=== PATIENT | female | born 1945 | race Caucasian/White ===

== ENCOUNTER 2017-01-22 09:10 | Emergency (ER) | payer MEDICARE ==
[2017-01-22] MEDS ORDERED: TETANUS/DIPHTHERIA/PERTUSSIS 0.5 ML SYRINGE IM ONE ×2 (10:23→10:39)
[2017-01-22] MEDS ORDERED: CEPHALEXIN 250 MG CAPSULE PO STA (10:23)
[2017-01-22] MEDS ORDERED: CEPHALEXIN 250 MG CAPSULE PO ONE (10:39)
--- NOTE | 2017-01-22 10:54 | ED Physician Documentation ---
History of Present Illness - Stated complaint Stated Complaint: R WRIST INJURY - Chief complaint Chief Complaint: Wound - Additonal information Additional information: hx from pt attacked by rooster last night wound to R FA immunosupressed 2/2 methotrexate Review of Systems Constitutional: denies: Fever Skin: reports: Other (wound / bite R FA) PD PAST MEDICAL HISTORY - Past Medical History Past Medical History: Yes Cardiovascular: None Respiratory: None Endocrine/Autoimmune: None GI: GERD : None Psych: None Derm: None Other Past Medical History: sjoegrens ds - Past Surgical History Past Surgical History: Yes 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 HEENT: Tonsil/Adenoidectomy - Present Medications Home Medications: Ambulatory Orders Medication Instructions Recorded Confirmed Albuterol [Ventolin Hfa] 2 puffs INH Q4H PRN 04/08/13 04/08/13 Areds 2 04/08/13 04/08/13 Ascorbic Acid [Vitamin C] 1,000 mg PO 04/08/13 04/08/13 Calcium Carb/Vitamin D3/Vit K1 1 each PO 04/08/13 04/08/13 [Calcium + Vit D & K Chew Tab] Carboxymethylcellulose Sodium 15 ml OP 04/08/13 04/08/13 [Refresh Liquigel] Cholecalciferol (Vitamin D3) 2,000 unit PO 04/08/13 04/08/13 [Vitamin D-3] Estrogens, Conjugated [Premarin] 0.625 mg PO 04/08/13 04/08/13 Fexofenadine HCl [Anni] 30 mg PO 04/08/13 04/08/13 Ginkgo Biloba 120 mg PO 04/08/13 04/08/13 Gluc HCl/Csa/Collagen/Hyalur A 1 each PO 04/08/13 04/08/13 [Glucosamine Chondroitin Cap] Ipriflavone Complex 04/08/13 04/08/13 Melatonin/Pyridoxine [Melatonin 3 1 each PO 04/08/13 04/08/13 mg Tablet] Multivit-Min/FA/Lycopene/Lut 1 each PO 04/08/13 04/08/13 [Centrum Silver Tablet] Naproxen Sodium [Aleve] 220 mg PO 04/08/13 04/08/13 Nasalcrom 5.2 BID 04/08/13 04/08/13 Nortriptyline [Pamelor] 25 mg PO HS 04/08/13 04/08/13 Potassium Gluconate [Potassium] 99 mg PO 04/08/13 04/08/13 Ranitidine HCl [Zantac] 150 mg PO BID 04/08/13 04/08/13 Selenium 200 mcg PO 04/08/13 04/08/13 Spironolact/Hydrochlorothiazid 0.5 each PO 04/08/13 04/08/13 [Aldactazide 25-25 Tablet] Ubidecarenone/Vitamin E Mixed 1 each PO 04/08/13 04/08/13 [Coq10 Sg 100 Softgel] Vit B Comp/C/FA/Iron/Vit E 1 each PO 04/08/13 04/08/13 [Vitamin B Complex Tablet] Hydrocodone/Acetaminophen 1 - 2 each PO Q6H PRN #14 tablet 03/05/16 [Hydrocodon-Acetaminophen 5-325] Cephalexin [Keflex] 500 mg PO Q6H #28 capsule 01/22/17 Methotrexate Sodium/Pf 25 mg IJ 01/22/17 [Methotrexate 25 mg/ml Vial] - Allergies Allergies/Adverse Reactions: Allergies Allergy/AdvReac Type Severity Reaction Status Date / Time No Known Drug Allergies Allergy Verified 04/08/13 07:36 - Social History Does the pt smoke?: No Smoking Status: Never smoker Does the pt drink ETOH?: No Does the pt have substance abuse?: No - Immunizations Immunizations are current?: No Immunizations: TDAP >10years/unknown PD ED PE NORMAL - Vitals Vital signs reviewed: Yes - Cardiac Cardiac: RRR (distant) - Respiratory Respiratory: No respiratory distress, Clear bilaterally - Extremities Extremities: Other (missing/avulsed tissue defect and several smaller puncture wounds to dorsal R FA, MSV intact, surrounding bruising and a bit of erythema) Results - Vitals Vitals: Vital Signs - 24 hr 01/22/17 09:16 Temperature 36.0 C L Heart Rate 65 Respiratory 16 Rate Blood Pressure 157/79 H O2 Saturation 100 Oxygen O2 Source Room air PD MEDICAL DECISION MAKING - ED course ED course: Open wound from chicken bite, on methotrexate, only small erythema but fear developing infection do not think pasteurella is a concern with poultry will rx keflex no need for rabies prophylaxis for non mammal bite pt to return to see me for wound check 48 hr Departure - Departure Disposition: 01 Home, Self Care Clinical Impression: Animal bite Condition: Good Instructions: ED Bite Animal General Prescriptions: Cephalexin [Keflex] 500 mg PO Q6H #28 capsule Comments: Every days gently wash the wounds and then apply antibiotic ointment and a clean bandage every day Since your PMD is off , return to see me for a wound check Your will need to follow up with your PMD to recheck your blood pressure - it was high today
[2017-01-22 11:11] VITALS: BP 130/65
== END 2017-01-22 11:12 | disposition home or self-care (01) ==
LOC: ED 09:10
DX: S51.851A Open bite of right forearm, initial encounter (principal); W64.XXXA Exposure to other animate mechanical forces, initial encounter; K21.9 Gastro-esophageal reflux disease without esophagitis; M35.00 Sjogren syndrome, unspecified
CPT/HCPCS: 90471; 90715; 99283; A9270

== ENCOUNTER 2018-06-27 12:11 | Outpatient (CLI) | payer MEDICARE ==
--- NOTE | 2018-06-27 15:49 | XRAY Report ---
Reason: HIP PAIN, RIGHT Procedure Date: 06/27/2018 Accession Number: [id number] / [id number] Procedure: XR - Hip w/Pelvis 2-3V RT CPT Code: FULL RESULT: EXAM: RIGHT HIP AND PELVIS RADIOGRAPHY EXAM DATE: 06/27/2018 01:03 PM. HISTORY: Hip pain, right. COMPARISONS: XR PELVIS 1 OR 2 VIEWS 01/19/2008 1:23 PM. TECHNIQUE: 1 view of the pelvis and 1 view of the hip. FINDINGS: Bones: Normal. No fracture or bone lesion. Joints: The bilateral hip joints are narrowed, progressed compared to 2007 and moderate to severe. The pubis symphysis, and sacroiliac joints are preserved. Soft Tissues: Normal. No soft tissue swelling. 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 RADIA
== END 2018-06-27 12:12 | disposition home or self-care (01) ==
LOC: DI 12:11
PROVIDERS: ATTEND Internal Medicine Rheumatology
DX: M16.0 Bilateral primary osteoarthritis of hip (principal)

== ENCOUNTER 2019-02-27 12:50 | Outpatient (CLI) | payer MEDICARE ==
[2019-02-27 13:15] LABS: BASOPHILS # (AUTO) 0.1 10^3/uL (0.0-0.1); BASOPHILS % (AUTO) 0.6 %; EOSINOPHILS # (AUTO) 0.1 10^3/uL (0.0-0.7); HGB - HEMOGLOBIN 13.5 g/dL (12.0-16.0); LYMPHOCYTES # (AUTO) 1.7 10^3/uL (1.5-3.5); LYMPHOCYTES % (AUTO) 14.7 %; MEAN CORPUSCULAR HEMOGLOBIN 32.5 pg (27.0-31.0); MEAN CORPUSCULAR HGB CONC 32.5 g/dL (32.0-36.0); MEAN CORPUSCULAR VOLUME 100.2 fL (81.0-99.0); MEAN PLATELET VOLUME 8.7 fL (7.9-10.8); MONOCYTES # (AUTO) 0.4 10^3/uL (0.0-1.0); MONOCYTES % (AUTO) 3.7 %; NEUTROPHILS # (AUTO) 9.1 10^3/uL (1.5-6.6); NEUTROPHILS % (AUTO) 79.3 %; PLT - PLATELET COUNT 402 10^3/uL (130-450); RED BLOOD COUNT 4.15 10^6/uL (4.20-5.40); RED CELL DISTRIBUTION WIDTH 16.1 % (12.0-15.0); WHITE BLOOD COUNT 11.5 x10^3/uL (4.8-10.8)
[2019-02-27 13:32] LABS: ALBUMIN 4.1 g/dL (3.2-5.5); ALBUMIN/GLOBULIN RATIO 1.3 (1.0-2.2); ALKALINE PHOSPHATASE 84 IU/L (42-121); ALT ALANINE AMINOTRANSFERASE 36 IU/L (10-60); AST ASPARTATE AMINOTRANSFERASE 39 IU/L (10-42); BILIRUBIN,TOTAL 0.5 mg/dL (0.2-1.0); BUN - BLOOD UREA NITROGEN 34 mg/dL (6-20); CALCIUM 11.8 mg/dL (8.5-10.3); CARBON DIOXIDE - CO2 27 mmol/L (21-32); CHLORIDE 102 mmol/L (101-111); CREATININE 1.5 mg/dL (0.4-1.0); GFR - MDRD 34 (>89); GLUCOSE 110 mg/dL (70-100); SODIUM 139 mmol/L (135-145); TOTAL PROTEIN 7.3 g/dL (6.7-8.2)
[2019-02-27 13:46] LABS: CRP - C-REACTIVE PROTEIN < 1.0 mg/dL (0-1.0)
== END 2019-02-27 12:51 | disposition home or self-care (01) ==
LOC: LAB 12:50
PROVIDERS: ATTEND Internal Medicine Rheumatology
DX: M35.01 Sjogren syndrome with keratoconjunctivitis (principal); N18.3 Chronic kidney disease, stage 3 (moderate)
CPT/HCPCS: 36415; 80053; 85025; 86140

== ENCOUNTER 2019-03-09 15:14 | Outpatient (CLI) | payer MEDICARE ==
[2019-03-09 16:26] LABS: ALBUMIN 3.9 g/dL (3.2-5.5); ALBUMIN/GLOBULIN RATIO 1.2 (1.0-2.2); BILIRUBIN,TOTAL 0.8 mg/dL (0.2-1.0); CALCIUM 10.2 mg/dL (8.5-10.3); TOTAL PROTEIN 7.1 g/dL (6.7-8.2)
[2019-03-11 23:37] LABS: ALBUMIN 3.9 g/dL (3.8-4.8); ALPHA 1 GLOBULIN 0.4 g/dL (0.2-0.3); BETA 1 GLOBULIN 0.4 g/dL (0.4-0.6); BETA 2 GLOBULIN 0.3 g/dL (0.2-0.5); GAMMA GLOBULIN 0.5 g/dL (0.8-1.7)
== END 2019-03-09 15:15 | disposition home or self-care (01) ==
LOC: LAB 15:14
PROVIDERS: ATTEND Internal Medicine
DX: E83.52 Hypercalcemia (principal)
CPT/HCPCS: 36415; 80053; 81599; 82306; 82570; 83519; 84155; 84156; 84165; 84166

== ENCOUNTER 2020-03-17 07:37 | Outpatient (CLI) | payer MEDICARE ==
--- NOTE | 2020-03-17 09:58 | Ultrasound Report ---
PROCEDURE: Retroperitoneal INDICATIONS: ABNORMAL MRI TECHNIQUE: Real-time scanning was performed of the retroperitoneal organs, with image documentation. COMPARISON: None available. FINDINGS: Kidneys: Right kidney measures 9.2 cm long; left kidney measures 9.3 cm long. Right renal cortical thickness is 0.9 cm; left renal cortical thickness is 1 cm. Kidneys appear somewhat atrophic with inc reased echogenicity. No solid masses, hydronephrosis, or nephrolithiasis. Bilateral renal cysts. Larg est on the right measures 0.8 x 0.8 x 0.8 cm and appears simple. Largest cyst on the left measures 3. 4 x 3.3 x 3.1 cm and is simple. Small calcification in the inferior pole the left kidney with shadowi ng measuring 1.3 x 1.2 x 0.7 cm. Renal vascular calcification seen. Bladder: Prevoid volume of 219 cc. Post void residual of 0 cc. Bilateral ureteral jets are seen. IMPRESSION: 1. Large simple cyst in the left kidney measuring 3.4 cm. Additional small renal cysts bilaterally. T he cyst appears simple on ultrasound but if MRI imaging is concerning recommend further evaluation [facility] renal protocol CT or MRI. -Outside MRI is not available for comparison at this time. Recommend comparison to prior imaging. 2. Nonobstructing calculus in the inferior pole the left kidney measuring 1.3 cm. No hydronephrosis. 3. Echogenic kidneys suggesting medical renal disease. 4. No post void residual. Reviewed by: Jonathan Hutchison MD on 03/17/2020 9:56 AM PDT Approved by: Jonathan Hutchison MD on 03/17/2020 9:56 AM PDT Station ID: [id number]
--- NOTE | 2020-03-17 12:45 | Ultrasound Report ---
PROCEDURE: Ext Limited Non Vascular INDICATIONS: RT LOWER MASS INNER LEG TECHNIQUE: Real-time scanning was performed of the , with image documentation. COMPARISON: None. FINDINGS: There is a small hypoechoic structure within the subcutaneous fat measuring only 2 x 4 x 5 mm. No internal blood flow, no evidence of hyperemia along the margins of this structure. IMPRESSION: Single identified ovoid hypoechoic 2 x 4 x 5 mm structure within the subcutaneous fat co rresponding to the area of current clinical concern. As discussed there is no internal blood flow wit hin this structure or increased blood flow along its periphery. Continued clinical follow-up is recom mended and if clinical concerns persist or increase surgical consultation for excisional biopsy could be considered. Reviewed by: Musa Lanza MD on 03/17/2020 12:44 PM PDT Approved by: Musa Lanza MD on 03/17/2020 12:44 PM PDT Station ID: [id number]
== END 2020-03-17 07:38 | disposition home or self-care (01) ==
LOC: DI 07:37
PROVIDERS: ATTEND Student in an Organized Health Care Education/Training Program
DX: R22.41 Localized swelling, mass and lump, right lower limb (principal); N20.0 Calculus of kidney; N28.1 Cyst of kidney, acquired
CPT/HCPCS: 76770; 76882

== ENCOUNTER 2021-02-07 13:30 | Outpatient (CLI) | payer MEDICARE | END 2021-02-07 13:31 | disposition home or self-care (01) | LOC: DI 13:30 → RT 13:31 | PROVIDERS: ATTEND Physician Assistant | DX: Z01.810 Encounter for preprocedural cardiovascular examination (principal) | CPT/HCPCS: 93005 ==

== ENCOUNTER 2021-07-07 15:17 | Outpatient (CLI) | payer MEDICARE ==
--- NOTE | 2021-07-07 16:53 | XRAY Report ---
PROCEDURE: Wrist 3 View LT INDICATIONS: LEFT WRIST PAIN TECHNIQUE: 4 views of the wrist were acquired. COMPARISON: None FINDINGS: Bones: Moderate to severe osteoarthritic changes are noted at the scaphotrapezial joint and first CM C joint. No acute fracture or dislocation. Moderate to severe osteoarthritic changes also noted invol ving second through fourth MCP joints. No fractures or dislocations. No suspicious bony lesions. Li near lucencies are noted throughout second through fifth metacarpal heads and at first and second CMC joints concerning for erosion secondary to inflammatory arthropathy. Scaphoid view: Scaphoid is grossly intact. Soft tissues: No suspicious soft tissue calcifications. IMPRESSION: Moderate to severe osteoarthritic changes in first CMC joint and scaphotrapezial joint. Moderate to s evere osteoarthritic changes also noted at second through fourth MCP joints. No fracture or dislocati on. Possible erosive changes involving the metacarpal heads and first and second CMC joints as above. Finding may represent changes related to inflammatory arthropathy. Reviewed by: Edi Viera MD on 07/07/2021 4:52 PM PST Approved by: Edi Viera MD on 07/07/2021 4:52 PM PST Station ID: [id number]
== END 2021-07-07 15:18 | disposition home or self-care (01) ==
LOC: DI.S 15:17
PROVIDERS: ATTEND Physician Assistant
DX: M19.032 Primary osteoarthritis, left wrist (principal)

== ENCOUNTER 2023-04-19 10:29 | Outpatient (CLI) | payer MEDICARE ==
--- NOTE | 2023-04-19 11:59 | XRAY Report ---
PROCEDURE: Cervical Spine 2 View INDICATIONS: NECK PAIN TECHNIQUE: 4 view(s) of the cervical spine were acquired. COMPARISON: None. FINDINGS: Bones: No fractures or dislocations to the C7 level. Reversal of the normal cervical lordosis. Grade 1 anterolisthesis of C5 on C6. Severe disc height loss at all levels. Osseous fusion at C5-6. Diffus e facet arthrosis. Soft tissues: No prevertebral soft tissue swelling. IMPRESSION: Severe, multilevel degenerative disease and facet arthrosis. No definite acute fracture, but extensiv e degenerative changes may obscure an occult finding. Given history, consider CT. Reviewed by: Alejandro Agrawal on 04/19/2023 11:58 AM PDT Approved by: Alejandro Agrawal on 04/19/2023 11:58 AM PDT Station ID: [id number]
[2023-04-19 14:50] LABS: CALCIUM 9.9 mg/dL (8.5-10.3); POTASSIUM 4.4 mmol/L (3.5-4.5)
== END 2023-04-19 10:30 | disposition home or self-care (01) ==
LOC: DI.S 10:29
PROVIDERS: ATTEND Student in an Organized Health Care Education/Training Program
DX: N18.31 Chronic kidney disease, stage 3a (principal); M47.812 Spondylosis without myelopathy or radiculopathy, cervical region; M50.322 Other cervical disc degeneration at C5-C6 level
CPT/HCPCS: 36415; 80048

== ENCOUNTER 2023-11-08 09:45 | Outpatient (CLI) | payer MEDICARE ==
[2023-11-08 15:32] LABS: BILIRUBIN,URINE SMALL (NEGATIVE); GLUCOSE, URINE (UA) NEGATIVE (NEGATIVE); KETONES,URINE (UA) TRACE mg/dL (NEGATIVE); LEUKOCYTE ESTERASE, URINE SMALL (NEGATIVE); NITRITE,URINE NEGATIVE (NEGATIVE); OCCULT BLOOD,URINE NEGATIVE (NEGATIVE); PH,URINE 5.5 PH (5.0-7.5); PROTEIN,URINE TRACE mg/dL (NEGATIVE); UROBILINOGEN,URINE 0.2 (NORMAL) E.U./dL (NORMAL)
[2023-11-08 15:55] LABS: BACTERIA,URINE Many /HPF (None Seen); CLARITY,URINE HAZY (CLEAR); RBC,URINE 0-5 /HPF (0-5); SQUAMOUS EPITHELIAL CELL,UR MANY Squamous (<= Few); WBC,URINE >25 /HPF (0-5)
[2023-11-08 15:56] LABS: CASTS, URINE 11-25 Hyaline Casts /LPF; MUCUS,URINE Few Strands
== END 2023-11-08 23:59 | disposition home or self-care (01) ==
LOC: LAB.S 09:45
PROVIDERS: ATTEND Emergency Medicine
DX: R30.0 Dysuria (principal)
CPT/HCPCS: 81001; 87086

== ENCOUNTER 2023-11-19 09:09 | Emergency (ER) | payer MEDICARE ==
--- NOTE | 2023-11-19 09:30 | ED Physician Documentation ---
PD HPI CHEST PAIN - Stated complaint Stated Complaint: CP - Chief complaint Chief Complaint: Cardiac - History obtained from History obtained from: Patient, EMS - History of Present Illness Timing - onset: Today Timing - onset during: Light activity Timing - duration: Hours (1) Timing - details: Abrupt onset, Now resolved Quality: Pressure, Tightness (feeling of pressure in chest and tightness, extending to face and neck.) Location: Substernal Radiation: Jaw, Neck, Other (face) Improved by: Other (improved enroute when EMS gave Diltiazem and HR slowed and converted to NSR.) Associated symptoms: Feeling faint / dizzy, General Weakness. No: Nausea Similar symptoms before: Has not had sx before Review of Systems Constitutional: denies: Fever, Chills Nose: denies: Rhinorrhea / runny nose, Congestion Throat: denies: Sore throat Cardiac: denies: Pedal edema, Calf pain Respiratory: denies: Cough GI: reports: Nausea. 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 HEENT: Tonsil/Adenoidectomy - Present Medications Home Medications: Ambulatory Orders Medication Instructions Recorded Confirmed Albuterol [Ventolin Hfa] 2 puffs INH Q4H PRN 04/08/13 11/19/23 Areds 2 04/08/13 04/08/13 Carboxymethylcellulose Sodium 15 ml OP DAILY 04/08/13 11/19/23 [Refresh Liquigel] Cholecalciferol (Vitamin D3) 2,000 unit PO DAILY 04/08/13 11/19/23 [Vitamin D-3] Fexofenadine HCl [Anni] 30 mg PO BIDWM 04/08/13 11/19/23 Ginkgo Biloba 120 mg PO DAILY 04/08/13 11/19/23 Ipriflavone Complex 04/08/13 04/08/13 Multivit-Min/FA/Lycopene/Lut 1 each PO DAILY 04/08/13 11/19/23 [Centrum Silver Tablet] Naproxen Sodium [Aleve] 220 mg PO DAILY 04/08/13 11/19/23 Nasalcrom 5.2 mg PO BID 04/08/13 11/19/23 Potassium Gluconate [Potassium] 99 mg PO DAILY 04/08/13 11/19/23 Spironolact/Hydrochlorothiazid 0.5 each PO DAILY 04/08/13 11/19/23 [Aldactazide 25-25 Tablet] Ubidecarenone/Vitamin E Mixed 1 each PO DAILY 04/08/13 11/19/23 [Coq10 Sg 100 Softgel] Vit B Comp/C/Folic/Iron/Vit E 1 each PO DAILY 04/08/13 11/19/23 [Vitamin B Complex Tablet] Methotrexate Sodium/Pf 25 mg IJ ONCE 01/22/17 11/19/23 [Methotrexate 25 mg/ml Vial] Magnesium Oxide [Mag Ox] 400 mg PO DAILY #30 tablet 11/19/23 - Allergies Allergies/Adverse Reactions: Allergies Allergy/AdvReac Type Severity Reaction Status Date / Time No Known Drug Allergies Allergy Verified 11/19/23 10:59 - Social History Does the pt smoke?: No Smoking Status: Never smoker Does the pt drink ETOH?: No Does the pt have substance abuse?: No - Immunizations Immunizations are current?: No Immunizations: TDAP >10years/unknown - POLST Patient has POLST: No Results - Vitals Vitals: Vital Signs - 24 hr 11/19/23 11/19/23 11/19/23 09:17 10:24 11:14 Temperature 36.2 C L Heart Rate 61 49 L Respiratory 22 16 Rate Blood Pressure 153/83 H 156/67 H Blood Pressure 146/81 H [Right] O2 Saturation 100 99 11/19/23 11/19/23 12:26 12:48 Temperature Heart Rate 55 L Respiratory 16 15 Rate Blood Pressure 135/75 H Blood Pressure [Right] O2 Saturation 99 Oxygen O2 Source Room air - EKG (time done) 09:44 EKG releavant findings:: EKG personally interpreted by author of this note. Relevant findings are: Rate: Rate (enter#) (51) Rhythm: Sinus bradycardia [place]: Normal Intervals: Normal VT QRS: Normal Ischemia: Normal ST segments. No: ST elevation c/w ischemia, ST depression - Labs Labs: Laboratory Tests 11/19/23 11/19/23 11/19/23 09:40 09:40 09:40 WBC 8.7 RBC 4.15 L Hgb 13.6 Hct 41.9 MCV 101.0 H MCH 32.8 H MCHC 32.5 RDW 14.6 Plt Count 297 MPV 8.7 Neut # (Auto) 5.2 Lymph # (Auto) 2.3 Piatt # (Auto) 0.7 Eos # (Auto) 0.4 Baso # (Auto) 0.1 Absolute Nucleated RBC 0.00 Nucleated RBC % 0.0 Sodium 141 Potassium 3.3 L Chloride 102 Carbon Dioxide 29 Anion Gap 10.0 BUN 31 H Creatinine 1.0 Estimated GFR (MDRD) 54 L Glucose 102 Calcium 10.3 Phosphorus 2.5 Magnesium 1.6 L Total Bilirubin 0.6 AST 28 ALT 32 Alkaline Phosphatase 74 B-Natriuretic Peptide 203 H Total Protein 6.6 Albumin 4.1 Globulin 2.5 Albumin/Globulin Ratio 1.6 Lipase 71 TSH 2.86 - Rads (name of study) chest xray Relevant Findings:: Prelim report reviewed, EMP independent interpretation of test (no acute process) PD Medical Decision Making - ED course Complexity details: reviewed results (CBC is okay. CHemistry showing K 3-2 and Mg 1.7, else normal. ), re-evaluated patient (Still feeeling okay here. Given extra Mag and Potassium for mildly low levels of each. Her heart rate is currently 40s-55. She states HR is typically upper 50s-low 60s. Could likely be slower than suual due to the Diltiazem. I defer starting on Ca/Beta blockers for now due to this. ), considered differential (Her symptoms tiffany to correspond to onset of rapid atrial fib and improved when HR slowed and converted back. ), d/w patient Departure - Departure Disposition: 01 Home, Self Care Clinical Impression: Paroxysmal atrial fibrillation, Low magnesium level, Low serum potassium Condition: Stable Record reviewed to determine appropriate education?: Yes Instructions: ED Afib Follow-Up: DIANNA ROSALES I [Primary Care Provider] - Prescriptions: Magnesium Oxide [Mag Ox] 400 mg PO DAILY #30 tablet Comments: You had an episode of atrial fibrillation which was going fast and seem to cause your symptoms. It was slow down with medication by the medics and is back to a normal rhythm. Your heart rate right now is a little bit slow and the new state that your heart rate tends to be slightly slow. So at this point I would prefer not to prescribe any medication for your heart rate or rhythm. I do not want your heart rate to go too slow when you are rested. I would contact your primary care and see if they can set you up with a heart monitor that you wear for period of a week or so and see if you are having this occur at other times. If so that may clarify the need for other medication. Otherwise if it was a single episode then no added medicine may be needed. Your potassium and magnesium were both a bit low and can contribute to the ease of which your heart has irregular rhythms. Continue with your potassium supplement and increase it to daily. Add a magnesium supplement. Stay well-hydrated otherwise. Return to the ER if you have similar episodes or other episodes that are lasting more than 15 or 20 minutes or associated with symptoms such as chest pain or lightheadedness or fainting. Forms: PCP List Discharge Date/Time: 11/19/23 12:48
[2023-11-19 09:45] LABS: BASOPHILS # (AUTO) 0.1 10^3/uL (0.0-0.1); BASOPHILS % (AUTO) 0.8 %; EOSINOPHILS # (AUTO) 0.4 10^3/uL (0.0-0.7); EOSINOPHILS % (AUTO) 4.3 %; HCT - HEMATOCRIT 41.9 % (37.0-47.0); HGB - HEMOGLOBIN 13.6 g/dL (12.0-16.0); LYMPHOCYTES # (AUTO) 2.3 10^3/uL (1.5-3.5); LYMPHOCYTES % (AUTO) 27.1 %; MEAN CORPUSCULAR HEMOGLOBIN 32.8 pg (27.0-31.0); MEAN CORPUSCULAR HGB CONC 32.5 g/dL (32.0-36.0); MEAN PLATELET VOLUME 8.7 fL (7.9-10.8); MONOCYTES # (AUTO) 0.7 10^3/uL (0.0-1.0); MONOCYTES % (AUTO) 7.7 %; NEUTROPHILS # (AUTO) 5.2 10^3/uL (1.5-6.6); NEUTROPHILS % (AUTO) 59.8 %; PLT - PLATELET COUNT 297 10^3/uL (130-450); RED BLOOD COUNT 4.15 10^6/uL (4.20-5.40); RED CELL DISTRIBUTION WIDTH 14.6 % (12.0-15.0); WHITE BLOOD COUNT 8.7 x10^3/uL (4.8-10.8)
--- NOTE | 2023-11-19 09:47 | XRAY Report ---
PROCEDURE: Chest 1V INDICATIONS: Chest Pain TECHNIQUE: One view of the chest was acquired. COMPARISON: None. FINDINGS: Surgical changes and devices: None. Lungs and pleura: No pleural effusions or pneumothorax. Lungs are clear. Mediastinum: Mediastinal contours appear normal. Heart size is normal. Bones and chest wall: No suspicious bony lesions. Overlying soft tissues appear unremarkable. IMPRESSION: No acute cardiopulmonary process. Reviewed by: Alejandro Agrawal MD on 11/19/2023 9:45 AM PDT Approved by: Alejandro Agrawal MD on 11/19/2023 9:45 AM PDT Station ID: [id number]
[2023-11-19 09:57] LABS: MAGNESIUM 1.6 mg/dL (1.7-2.3)
[2023-11-19 10:03] LABS: ALBUMIN 4.1 g/dL (3.2-5.5); ALBUMIN/GLOBULIN RATIO 1.6 (1.0-2.2); BILIRUBIN,TOTAL 0.6 mg/dL (0.2-1.0); CALCIUM 10.3 mg/dL (8.5-10.3); PHOSPHORUS 2.5 mg/dL (2.5-5.0); POTASSIUM 3.3 mmol/L (3.5-4.5); TOTAL PROTEIN 6.6 g/dL (6.4-8.9)
[2023-11-19 10:13] LABS: THYROID STIMULATING HORMONE 2.86 uIU/mL (0.34-5.60)
[2023-11-19] MEDS: POTASSIUM BICARB 25 MEQ TABLET PO STA (10:19)
[2023-11-19] MEDS: MAGNESIUM SULFATE 2 GRAM 2 GM/50 ML BAG IV ONE (10:19)
[2023-11-19 11:24] VITALS: O2SAT 99
[2023-11-19 12:57] VITALS: BP 135/75
== END 2023-11-19 12:48 | disposition home or self-care (01) ==
LOC: EDUNIT# → ED 09:09
DX: I48.0 Paroxysmal atrial fibrillation (principal); E83.42 Hypomagnesemia; E87.6 Hypokalemia; Z79.899 Other long term (current) drug therapy
CPT/HCPCS: 36415; 71045; 80053; 83690; 83735; 83880; 84100; 84443; 85025; 93005; 96365; 99284; A9270

== ENCOUNTER 2024-06-13 01:37 | Inpatient (IN) ==
--- NOTE | 2024-06-13 01:37 | ED Physician Documentation ---
History of Present Illness Stated complaint Stated Complaint: AFIB RVR Chief complaint Chief Complaint: Cardiac Additonal information Additional information: 79-year-old female with history of atrial fibrillation, Watchman procedure, hysterectomy, GERD presents with tachycardia. The patient states she was feeling well until a few hours ago, when she developed palpitations again, similar to a few days ago. She denies any other symptoms. No fevers, chills, nausea or vomiting, shortness of breath, lightheadedness or syncope, chest or back or abdominal or flank pain, trauma, or other new concerns. No urinary symptoms. EMS noted afib with RVR and gave 43mg IV diltiazem total, decreasing HR from 180s to 150s. She tolerated this well. She was BP 130s/80s. She denies history of bleeding, stating she had Watchmann procedure because she is on NSAIDs for her rheumatoid arthritis, for which she also takes methotrexate. Per chart review, she was seen June 11, 2 days ago, with report of extensive prior testing, no anticoagulation however clopidogrel. She has received IV diltiazem in the past. In the ER, she had low normal blood pressure readings, accordingly was cardioverted with propofol for sedation. She required 2 electrocardioversions. Review of Systems ROS Constitutional: no fever, no chills Eyes: no visual disturbance, no discharge Ears, Nose, Mouth, Throat: no rhinorrhea, no sore throat Cardiovascular: no chest pain, +palpitations Respiratory: no cough, no shortness of breath Gastrointestinal: no abdominal pain, no vomiting, no diarrhea Genitourinary: no dysuria, no hematuria Musculoskeletal: no back pain, no neck stiffness Skin: no rash, no wound Neurological: no focal weakness, no focal numbness Meds/Allgy Home Medications Ambulatory Orders Medication Instructions Recorded Confirmed albuterol sulfate 90 mcg/actuation 2 puff inhalation Q4H PRN Wheezing 04/08/13 06/13/24 aerosol inhaler (Ventolin HFA) carboxymethylcellulose sodium 1 % 15 ml ophthalmic (eye) DAILY 04/08/13 06/13/24 eye liquid gel drops (Refresh Liquigel) cholecalciferol (vitamin D3) 50 2,000 unit PO DAILY 04/08/13 06/13/24 mcg (2,000 unit) capsule (Vitamin D3) coenzyme J68-juaulig E 100 mg-100 1 ea PO DAILY 04/08/13 06/13/24 unit capsule (CoQ10 SG) ginkgo biloba 120 mg tablet 120 mg PO DAILY 04/08/13 06/13/24 potassium gluconate 595 mg (99 mg) 1,190 mg PO BID 04/08/13 06/13/24 tablet spironolactone 25 0.5 tab PO DAILY 04/08/13 06/13/24 mg-hydrochlorothiazide 25 mg tablet (Aldactazide) vit B pxkiohq-C-IG-iron fum-vit E 1 ea PO DAILY 04/08/13 06/13/24 500 mg-400 mcg-18 mg iron tablet (Vitamins B Complex) methotrexate sodium (PF) 25 mg/mL 25 mg IM OAW 01/22/17 06/13/24 injection solution magnesium oxide 400 mg (241.3 mg 400 mg PO DAILY #30 tabs 11/19/23 06/13/24 magnesium) tablet clopidogrel 75 mg tablet 75 mg PO DAILY 06/11/24 06/13/24 fexofenadine 180 mg tablet 180 mg PO Q24H 06/11/24 06/13/24 (Anni Allergy) methylprednisolone 4 mg tablet 4 mg PO DAILY 06/11/24 06/13/24 omeprazole 20 mg capsule,delayed 20 mg PO DAILY 06/11/24 06/13/24 release vit C 250 mg-vit E 200 unit-zinc 4 cap PO DAILY 06/11/24 06/13/24 ox 12.5 sz-ovdeyh-aesvcx-zeax capsule Allergies Allergies Allergy/AdvReac Type Severity Reaction Status Date / Time cyclobenzaprine Allergy Unknown Unknown Verified 06/13/24 01:47 [facility] Social History Social History Smoking Status: Never smoker Do you dip or chew tobacco?: No Relationship: Do you feel safe in your home environment?: Yes Suffered physical, verbal, emotional, or financial abuse?: No History of Abuse: No POLST Patient has POLST: No Exam Exam Const: no acute distress, non toxic appearing; calm, conversant, pleasant Eyes: PERRLA, EOMI ENT: mucous membranes moist Neck: supple, non-tender Resp: no respiratory distress, clear to auscultation bilaterally Card: Irregularly irregular tachycardia to 140s currently, no murmurs Abd: non tender diffusely, no rigidity or rebound or guarding Back: no T or L spine tenderness, no CVA tenderness bilaterally Extrem: no deformities, no swelling bilateral lower extremities, less than 2- second capillary refill distally, 2+ distal pulses all extremities Neuro: ANOx4, sampler tester grossly intact, grossly intact sensation and strength all extremities Skin: no rash, warm and dry Results Vitals Vitals: Vital Signs - 24 hr 06/13/24 01:40 06/13/24 02:13 06/13/24 02:15 Temperature 36.6 C Temperature Source Temporal Artery Scan Pulse Rate 142 H 112 H 134 H Respiratory Rate 12 13 12 Blood Pressure 125/83 111/91 H 112/90 O2 Saturation 97 97 97 O2 Source Room air Room air Room air Pain Intensity 0 0 0 06/13/24 02:20 06/13/24 02:25 06/13/24 02:40 Temperature Temperature Source Pulse Rate 136 H 122 H 131 H Respiratory Rate 12 11 L 10 L Blood Pressure 123/96 H 129/65 123/92 H O2 Saturation 98 97 97 O2 Source Room air Room air Room air Pain Intensity 0 0 0 06/13/24 02:55 Temperature Temperature Source Pulse Rate 119 H Respiratory Rate 12 Blood Pressure 129/80 O2 Saturation 97 O2 Source Room air Pain Intensity 0 Oxygen O2 Source Room air Labs Labs: Laboratory Tests 06/13/24 01:48 WBC 8.8 RBC 4.00 L Hgb 13.1 Hct 39.3 MCV 98.3 MCH 32.8 H MCHC 33.3 RDW 15.9 H Plt Count 361 MPV 8.7 Neut # (Auto) 5.8 Lymph # (Auto) 1.9 [place] # (Auto) 0.7 Eos # (Auto) 0.2 Baso # (Auto) 0.1 Absolute Nucleated RBC 0.00 Nucleated RBC % 0.0 Sodium 141 Potassium 3.8 Chloride 108 Carbon Dioxide 24 Anion Gap 9.0 BUN 35 H Creatinine 0.9 Estimated GFR (MDRD) 60 L Glucose 128 H Calcium 9.8 Magnesium 2.1 Total Bilirubin 0.5 AST 27 ALT 27 Alkaline Phosphatase 92 Total Protein 7.0 Albumin 4.1 Globulin 2.9 Albumin/Globulin Ratio 1.4 PD Medical Decision Making ED course ED course: This patients presentation is most suggestive of recurring idiopathic atrial fibrillation with rapid ventricular response, with patient denying taking any rate control at home. She appears well-perfused, stable, comfortable. Blood pressure today appears suitable for trial of further diltiazem, and given she has received over 40 mg IV already, I am initiating diltiazem drip, along with magnesium sulfate 2 g IV. I am obtain EKG, CBC, CMP, magnesium, chest x-ray, giving small fluid bolus and will closely reassess. Patient understands and agrees with plan. EKG atrial fibrillation with rapid ventricular response to 110 currently, though intermittently to 130s to 140s on my assessments. No acute ischemia or immediately concerning interval prolongation. No chest pain. Labs: CBC with no leukocytosis, anemia, thrombocytopenia. Magnesium within normal limits. CMP grossly reassuring. CXR: I agree with radiology reads of imaging on my independent review of imaging. Per read by Dr. Us at 2:17AM, no acute findings; noted are R basilar atelectasis, L atrial appendage device/Watchman device, atherosclerotic calcifications of aorta. Patient stable but HR in 130s; requesting hospitalist consult at [phone] for admit on dilt gtt. Hospitalist: I spoke with Dr. Quesada of hospitalist who kindly accepts for admission on review of case with me at [phone] on phone. Admitting in stable condition on diltiazem gtt. CRITICAL CARE TIME: outside of procedures, I spent 35 minutes assessing, reassessing, resuscitating this patient, speaking with family and consultants, and interpreting studies and documentation, in the setting of afib RVR requiring dilt gtt. Discharge Plan Discharge Patient Disposition: 66 [facility] DC/Xfer Condition: Stable Clinical Impression: Atrial fibrillation with rapid ventricular response
[2024-06-13 01:51] LABS: BASOPHILS # (AUTO) 0.1 10^3/uL (0.0-0.1); BASOPHILS % (AUTO) 0.7 %; EOSINOPHILS # (AUTO) 0.2 10^3/uL (0.0-0.7); EOSINOPHILS % (AUTO) 2.7 %; HCT - HEMATOCRIT 39.3 % (37.0-47.0); HGB - HEMOGLOBIN 13.1 g/dL (12.0-16.0); LYMPHOCYTES # (AUTO) 1.9 10^3/uL (1.5-3.5); MEAN CORPUSCULAR HEMOGLOBIN 32.8 pg (27.0-31.0); MEAN CORPUSCULAR HGB CONC 33.3 g/dL (32.0-36.0); MEAN CORPUSCULAR VOLUME 98.3 fL (81.0-99.0); MEAN PLATELET VOLUME 8.7 fL (7.9-10.8); MONOCYTES # (AUTO) 0.7 10^3/uL (0.0-1.0); MONOCYTES % (AUTO) 8.3 %; NEUTROPHILS # (AUTO) 5.8 10^3/uL (1.5-6.6); NEUTROPHILS % (AUTO) 66.1 %; PLT - PLATELET COUNT 361 10^3/uL (130-450); RED CELL DISTRIBUTION WIDTH 15.9 % (12.0-15.0); WHITE BLOOD COUNT 8.8 x10^3/uL (4.8-10.8)
[2024-06-13] MEDS ORDERED: diltiaZEM INJ 5 MG/ML VIAL ONE (01:57)
[2024-06-13 02:03] LABS: MAGNESIUM 2.1 mg/dL (1.7-2.3)
[2024-06-13 02:09] LABS: ALBUMIN 4.1 g/dL (3.2-5.5); ALBUMIN/GLOBULIN RATIO 1.4 (1.0-2.2); BILIRUBIN,TOTAL 0.5 mg/dL (0.2-1.0); CALCIUM 9.8 mg/dL (8.5-10.3); CREATININE 0.9 mg/dL (0.6-1.3); POTASSIUM 3.8 mmol/L (3.5-4.5)
[2024-06-13] MEDS: diltiaZEM INJ 125 MG in DEXTROSE 5% 100 ML IV STA (02:10)
[2024-06-13] MEDS: SODIUM CHLORIDE 0.9% 500 ML IV STA (02:15)
[2024-06-13] MEDS: MAGNESIUM SULFATE 2 GRAM 2 GM/50 ML BAG IV ONE (02:34)
[2024-06-13] MEDS ORDERED: ONDANSETRON 4 MG/2 ML VIAL IVP PRN (03:10)
--- NOTE | 2024-06-13 03:22 | HISTORY & PHYSICAL EXAMINATION ---
Chief Complaint Chief Complaint Chief Complaint: Palpitations History of Present Illness History of Present Illness HPI Comment/Other: 79 y old female with PMH A fib came to the ER due to palpiataions which started at 23:15. Pt also had some discomfort in the jaw but it went away. Denies chest pain, SOB, GUERRERO, fver, abdomiinal pain, nausea, vomiting, diarrhea, constipation EKG showed A fib with RVR Pt visited ER yesterday due to A fib with RVR and had cardioversion Pt had watchman procedure 2 week ago As per pt, she had episode of A fib with RVR in October as well In ER, pt was started on Diltiazem gtt Pt is admitted due to A fib with RVR Review of Systems Status of ROS: 10 or more systems reviewed and unremarkable except as noted in history and below PFSH Social History Social History Smoking Status: Never smoker Do you dip or chew tobacco?: No Relationship: Do you feel safe in your home environment?: Yes Suffered physical, verbal, emotional, or financial abuse?: No History of Abuse: No POLST Patient has POLST: No Meds/Allgy Home Medications Ambulatory Orders Medication Instructions Recorded Confirmed albuterol sulfate 90 mcg/actuation 2 puff inhalation Q4H PRN Wheezing 04/08/13 06/13/24 aerosol inhaler (Ventolin HFA) carboxymethylcellulose sodium 1 % 15 ml ophthalmic (eye) DAILY 04/08/13 06/13/24 eye liquid gel drops (Refresh Liquigel) cholecalciferol (vitamin D3) 50 2,000 unit PO DAILY 04/08/13 06/13/24 mcg (2,000 unit) capsule (Vitamin D3) coenzyme Q75-hsitzfo E 100 mg-100 1 ea PO DAILY 04/08/13 06/13/24 unit capsule (CoQ10 SG) ginkgo biloba 120 mg tablet 120 mg PO DAILY 04/08/13 06/13/24 potassium gluconate 595 mg (99 mg) 1,190 mg PO BID 04/08/13 06/13/24 tablet spironolactone 25 0.5 tab PO DAILY 04/08/13 06/13/24 mg-hydrochlorothiazide 25 mg tablet (Aldactazide) vit B lnsyhht-Q-MZ-iron fum-vit E 1 ea PO DAILY 04/08/13 06/13/24 500 mg-400 mcg-18 mg iron tablet (Vitamins B Complex) methotrexate sodium (PF) 25 mg/mL 25 mg IM OAW 01/22/17 06/13/24 injection solution magnesium oxide 400 mg (241.3 mg 400 mg PO DAILY #30 tabs 11/19/23 06/13/24 magnesium) tablet clopidogrel 75 mg tablet 75 mg PO DAILY 06/11/24 06/13/24 fexofenadine 180 mg tablet 180 mg PO Q24H 06/11/24 06/13/24 (Anni Allergy) methylprednisolone 4 mg tablet 4 mg PO DAILY 06/11/24 06/13/24 omeprazole 20 mg capsule,delayed 20 mg PO DAILY 06/11/24 06/13/24 release vit C 250 mg-vit E 200 unit-zinc 4 cap PO DAILY 06/11/24 06/13/24 ox 12.5 jy-jjueac-rttghj-zeax capsule Allergies Allergies Allergy/AdvReac Type Severity Reaction Status Date / Time cyclobenzaprine Allergy Unknown Unknown Verified 06/13/24 01:47 Exam Constitutional normal general appearance HENMT normocephalic Eyes PERRL Neck/C-Spine visual inspection normal Chest inspection of chest normal Respiratory breath sounds equal bilaterally Cardiovascular irregular Gastrointestinal abdomen normal to inspection Extremities normal to inspection Neurology no focal motor deficit noted Skin no rash Conclusion/Plan Problem List (1) Atrial fibrillation with rapid ventricular response: Plan: A: A fib with RVR HTN Plan: Admit in ICU Cont cardiac monitoring Seriel cardiac enzymes Echo Start cardizem gtt Consult cardiology in am DVT prophylaxic: SCD Full code Pt is admitted as inpatient as more than 2 midnight stay is expected Lab Results 06/13/24 01:48 06/13/24 01:48
[2024-06-13] MEDS: diltiaZEM INJ 125 MG in DEXTROSE 5% 100 ML IV SCH (05:19)
[2024-06-13 06:16] LABS: BASOPHILS # (AUTO) 0.1 10^3/uL (0.0-0.1); BASOPHILS % (AUTO) 0.8 %; EOSINOPHILS # (AUTO) 0.3 10^3/uL (0.0-0.7); EOSINOPHILS % (AUTO) 3.1 %; HCT - HEMATOCRIT 37.4 % (37.0-47.0); HGB - HEMOGLOBIN 12.6 g/dL (12.0-16.0); LYMPHOCYTES # (AUTO) 1.6 10^3/uL (1.5-3.5); LYMPHOCYTES % (AUTO) 19.2 %; MEAN CORPUSCULAR HEMOGLOBIN 32.9 pg (27.0-31.0); MEAN CORPUSCULAR HGB CONC 33.7 g/dL (32.0-36.0); MEAN CORPUSCULAR VOLUME 97.7 fL (81.0-99.0); MEAN PLATELET VOLUME 8.6 fL (7.9-10.8); MONOCYTES # (AUTO) 0.7 10^3/uL (0.0-1.0); MONOCYTES % (AUTO) 8.5 %; NEUTROPHILS # (AUTO) 5.8 10^3/uL (1.5-6.6); NEUTROPHILS % (AUTO) 67.9 %; PLT - PLATELET COUNT 335 10^3/uL (130-450); RED BLOOD COUNT 3.83 10^6/uL (4.20-5.40); RED CELL DISTRIBUTION WIDTH 15.9 % (12.0-15.0); WHITE BLOOD COUNT 8.5 x10^3/uL (4.8-10.8)
[2024-06-13 06:19] LABS: VBG PH 7.459 (7.31-7.41)
[2024-06-13 06:20] LABS: CALCIUM, IONIZED 1.12 mmol/L (1.15-1.33)
[2024-06-13 06:29] LABS: CALCIUM 8.9 mg/dL (8.5-10.3); CREATININE 0.8 mg/dL (0.6-1.3); POTASSIUM 3.7 mmol/L (3.5-4.5)
[2024-06-13 06:42] LABS: MAGNESIUM 2.6 mg/dL (1.7-2.3); PHOSPHORUS 2.8 mg/dL (2.5-5.0)
[2024-06-13] MEDS: POTASSIUM CHLORIDE 20 MEQ TABLET PO ONE (07:06)
[2024-06-13] MEDS: SODIUM CHLORIDE FLUSH 0.9% 10 ML SYRINGE IVP SCH (08:10)
--- NOTE | 2024-06-13 09:44 | XRAY Report ---
PROCEDURE: XR Chest 1V INDICATIONS: afib RVR TECHNIQUE: One view of the chest was acquired. COMPARISON: June 11, 2024. FINDINGS: Surgical changes and devices: Again seen is enlargement device. Lungs and pleura: No pleural effusions or pneumothorax. No consolidation. Mediastinum: Mediastinal contours appear normal. Heart size is normal. The esophagus is gas-fille d and appears dilated with a possible hiatal hernia. Bones and chest wall: No suspicious bony lesions. Overlying soft tissues appear unremarkable. IMPRESSION: No acute cardiopulmonary process. Dilated gas-filled esophagus with likely hiatal hernia. Reviewed by: Марина Lucas MD on 06/13/2024 8:43 AM [facility] Approved by: Марина Lucas MD on 06/13/2024 8:43 AM [facility] Station ID: [id number]
[2024-06-13] MEDS: diltiaZEM CD 180 MG CAPSULE PO SCH (10:02)
[2024-06-13] MEDS: METOPROLOL 5 MG/5 ML VIAL IVP PRN (13:00)
--- NOTE | 2024-06-13 13:01 | PHARMACY PROGRESS NOTE ---
Best Possible Medication History Admit Date and Time: 06/13/24 [id number] Home Medications Medication Instructions Recorded Confirmed Type albuterol sulfate 90 mcg/actuation 2 puff inhalation Q4H PRN Wheezing 04/08/13 06/13/24 History aerosol inhaler (Ventolin HFA) carboxymethylcellulose sodium 1 % 15 ml ophthalmic (eye) DAILY 04/08/13 06/13/24 History eye liquid gel drops (Refresh Liquigel) cholecalciferol (vitamin D3) 50 2,000 unit PO DAILY 04/08/13 06/13/24 History mcg (2,000 unit) capsule (Vitamin D3) coenzyme A10-mfhjuqn E 100 mg-100 1 ea PO DAILY 04/08/13 06/13/24 History unit capsule (CoQ10 SG) ginkgo biloba 120 mg tablet 120 mg PO DAILY 04/08/13 06/13/24 History potassium gluconate 595 mg (99 mg) 1,190 mg PO BID 04/08/13 06/13/24 History tablet spironolactone 25 0.5 tab PO DAILY 04/08/13 06/13/24 History mg-hydrochlorothiazide 25 mg tablet (Aldactazide) vit B xmpcnid-N-UV-iron fum-vit E 1 ea PO DAILY 04/08/13 06/13/24 History 500 mg-400 mcg-18 mg iron tablet (Vitamins B Complex) methotrexate sodium (PF) 25 mg/mL 25 mg IM OAW 01/22/17 06/13/24 History injection solution magnesium oxide 400 mg (241.3 mg 400 mg PO DAILY #30 tabs 11/19/23 06/13/24 Rx magnesium) tablet clopidogrel 75 mg tablet 75 mg PO DAILY 06/11/24 06/13/24 History fexofenadine 180 mg tablet 180 mg PO Q24H 06/11/24 06/13/24 History (Anni Allergy) methylprednisolone 4 mg tablet 4 mg PO DAILY 06/11/24 06/13/24 History omeprazole 20 mg capsule,delayed 20 mg PO DAILY 06/11/24 06/13/24 History release vit C 250 mg-vit E 200 unit-zinc 4 cap PO DAILY 06/11/24 06/13/24 History ox 12.5 gc-kiikqe-wpchvk-zeax capsule [facility] Statement: As the person ultimately responsible for medication therapy, providers are able to order a medication from an existing home medication list in [facility] via the "Reconcile Routine" prior to Confirmation of that medication by field support technician. Such practice is discouraged except when the physician, in their clinical judgment, deems that a medical need exists for a medication without regard to previous use.
--- NOTE | 2024-06-13 16:39 | PROVIDER PROGRESS NOTE ---
Progress Note Progress Note Progress Note: Subjective: 65 minutes was spent updating her H&P, speaking to the patient with exam, and then speaking to the Digital Account Coordinator international marketing specialist. This is a 79-year-old white female with a history of atrial fibrillation. She was brought in by ambulance in the supervisor underwriting clerks hours of today. She had gone to bed around 10 PM and had a recurrence of severe palpitations. Prior to this her history goes back to: June 11, 2024 abrupt onset of palpitations. Chest pain and tightness radiating to the jaw and neck. Blood pressure 97/78. Cardioverted twice in the ER. Sent home to follow-up with primary care provider, stone splitter but no rate lowering drugs. Approximately May 28, 2024 Watchman procedure for recurrent atrial fibrillation. To be on Plavix and aspirin for 45 days. Summer 2023 nuclear stress test and echocardiogram with [facility], cardiology in [place]. November 19, 2023 she presented with chest tightness extending to the face and neck associated with A-fib with RVR that was abrupt in onset. She was feeling faint, dizzy and generally weak. All of this improved en route to the hospital when EMS gave her diltiazem and heart rate slowed. She was able to convert to sinus rhythm. She was given magnesium and potassium for magnesium of 3.2 and a magnesium of 1.7. In the ER today she was started on diltiazem drip. And admitted to the ICU. This morning, approximately 7:30 AM, she is still in atrial fibrillation. Her heart rate is in the 80s and 90s. I am stopping her diltiazem drip and giving her Cardizem CD 180 mg daily. She is exhausted. She feels like she just ran a marathon and feels generalized weakness and fatigue. No chest pain. No shortness of breath. Every once while she still feels like her heart has a burst of tachycardia and then it slows down again within moments. Past medical history: 1. Sjogren's/stiff muscle syndrome since the age of 30. She is not on a monoclonal antibody; she is on methotrexate. 2. A-fib as above 3. with endometriosis and a hysterectomy at the age of 31 4. Stress fractures of feet near the time of her nursing home 5. Spine abnormalities. She fell and broke her neck when she was 15. She fell off a horse. It took 4 days for them to recognize that her spine was fractured. She has had lumbar disc surgery for sciatica. 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 6. Osteoarthritis with a right total hip replacement 7. Deafness 8. Visual migraines 9. History of cataracts removed with lens implantation 2012 Social history: She lives in [place]. Her support is from her friends and neighbors. She is trying to get one of her friends to be DURABLE POWER OF ACCOUNT SUPPORT ASSOCIATE. 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 She was . She retired from work because she was getting stress fractures in her feet. Hurt to stand. She was for many decades and never had children. She has been since 2018. At that time she was living on [address] on a farm. That was sold in 2021 and she now lives in town in [place]. She drinks 2-3 drinks a year. She never smoked. Family history: Mom at age 83 of probable esophageal cancer. She is not sure. Mom was an alcoholic and a smoker. Dad at age 81 of a brainstem hemorrhage. He abused alcohol and was a smoker. 1 brother lives in [place] but he still has a lot of childhood trauma that he is dealing with and does not speak to her. Her designated DPOA is Yesy Curran. She is in the midst of getting that paperwork done. Her primary care provider is Dr. Mcnamara at [facility], the [facility]. And her stone splitter is Dr. Ana Pizarro, also from the [facility]. Exam: Temperature is 36.5. Heart rate is 80. Respiration 15. 96% saturated on room air. Blood pressure 103/61. 5 foot 3 inch elderly female at 68 kg She does have facial asymmetry. She says that she is always had a face that was asymmetrical since . Left side face structure is subtly lower than the right. Definitely noticeable in the structure of her orbit and left eye lid lag. Neck is supple without bruits Irregular rate and rhythm without a murmur, no tachycardia. Abdomen is soft, nontender without masses She does not have any JVD or pedal edema. Skin exam is warm, pink, and no diaphoresis. No Raynaud's to the hands or feet Neurologically alert and oriented person, place, time and situation. Assessment/plan 1. Recurrent atrial fibrillation with RVR. This is also complicated by sinus bradycardia. When she was seen in October 2020 in the ER she became bradycardic with a single dose of diltiazem that was given to her. Her stone splitter have opted not to give her rate lowering drugs because of the bradycardia. I called the stone splitter on-call for Dr. Saucedo. That was Dr. Jonatan Farmer. I discussed the specifics of the case with him. 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 At this point, she has had 2 episodes of A-fib with severe tachycardia in 72 hours. This is after the Watchman procedure. He does recommend that I start her on Cardizem CD. Low-dose. And I am starting her on 180 mg. He will let her stone splitter know and will have the patient seen YOMAIRA. I expressed the thought that this patient may need a pacemaker. The patient is exhausted. She feels like she just ran a marathon. She is also fearful at times because she can feel her heart palpitating sporadically and then slow down again. I plan on keeping her overnight. She was admitted approximately 1:30 in the morning. She will stay 1 midnight and tomorrow morning I will reassess her for probable discharge. 2. Elevated troponin. Her troponin was 31 at 3:40 in the morning. At 6 in the morning it was 137. I think this is due to demand ischemia or just myocardial fiber stretch in a patient who is tachycardic for quite some time. Will recheck troponin this afternoon.
[2024-06-13] MEDS: CALCIUM CARBONATE CHEW 500 MG TABLET PO PRN (23:31)
[2024-06-13] MEDS: SODIUM CHLORIDE FLUSH 0.9% 10 ML SYRINGE IVP PRN (23:31)
[2024-06-14] MEDS: SODIUM CHLORIDE 0.9% 500 ML IV ONE (02:57)
[2024-06-14] MEDS: SODIUM CHLORIDE 0.9% 1,000 ML IV ONE (03:06)
[2024-06-14] MEDS: diltiaZEM INJ 125 MG in DEXTROSE 5% 100 ML IV SCH (04:34)
[2024-06-14 05:33] LABS: CALCIUM, IONIZED 1.12 mmol/L (1.15-1.33); VBG PH 7.432 (7.31-7.41)
[2024-06-14 05:43] LABS: PHOSPHORUS 2.8 mg/dL (2.5-5.0)
[2024-06-14] MEDS: methylPREDNISolone 4 MG TABLET PO SCH (08:47)
[2024-06-14] MEDS: CLOPIDOGREL 75 MG TABLET PO SCH (08:47)
[2024-06-14] MEDS: CHOLECALCIFEROL 25 MCG TABLET PO SCH (08:47)
[2024-06-14] MEDS: CARBOXYMETHYLCELLULOSE SODIUM EACHEAR SCH (09:02)
[2024-06-14] MEDS: [UNRECOGNIZED DRUG - OTHER] EACHEAR SCH (09:02)
--- NOTE | 2024-06-14 11:02 | PROVIDER PROGRESS NOTE ---
Subjective Prog Note Date Prog Note Date: 06/14/24 Prog Note Time: 10:58 Subjective Pt reports feeling: Improved Subjective: Does not have the shortness of breath chest tightness from yesterday. Every once while she feels the palpitations she is having. But she feels overall improved from yesterday to today. Unfortunately her A-fib rate became uncontrolled again in the underbaster hours. She was resumed on her diltiazem drip around 4:30 in the morning. She is in the 120s. Otherwise no new complaints. Sitting up in bed. Eating her breakfast. Current Medications Current Medications Current Medications: Current Medications Generic Name Dose Route Start Last Admin Trade Name Freq PRN Reason Stop Dose Admin Calcium Carbonate/Glycine 500 mg 06/13/24 22:22 06/13/24 23:31 Calcium Carbonate Chew 500 Mg Tablet PO 500 mg BID PRN Administration INDIGESTION Cholecalciferol 50 mcg 06/14/24 09:00 06/14/24 08:47 Cholecalciferol 25 Mcg Tablet PO 50 mcg DAILY MIRIAM Administration Clopidogrel Bisulfate 75 mg 06/14/24 09:00 06/14/24 08:47 Clopidogrel 75 Mg Tablet PO 75 mg DAILY MIRIAM Administration Diltiazem HCl 60 mg 06/14/24 10:57 Diltiazem 30 Mg Tablet PO 06/14/24 10:58 ONCE STA Diltiazem HCl 125 mg/ Dextrose 125 mls @ 5 mls/hr 06/14/24 04:00 06/14/24 05:52 IV 10 mg/hr .Q25H MIRIAM 10 mls/hr Titration Protocol 5 MG/HR Methylprednisolone 4 mg 06/14/24 09:00 06/14/24 08:47 Methylprednisolone 4 Mg Tablet PO 4 mg DAILY MIRIAM Administration Metoprolol Tartrate 5 mg 06/13/24 08:37 06/13/24 23:45 Metoprolol 5 Mg/5 Ml Vial IVP 5 mg Q6H PRN Administration tachycardia >110 Non-Formulary Medication 15 ml 06/14/24 09:00 06/14/24 09:02 Carboxymethylcellulose Sodium [Refresh Liquigel] EACHEAR Not Given DAILY MIRIAM Ondansetron HCl 4 mg 06/13/24 03:10 Ondansetron 4 Mg/2 Ml Vial IVP Q6HR PRN Nausea / Vomiting Sodium Chloride 10 ml 06/13/24 09:00 06/14/24 08:47 Sodium Chloride Flush 0.9% 10 Ml Syringe IVP 10 ml 0100,0900,1700 MIRIAM Administration Sodium Chloride 10 ml 06/13/24 03:10 06/13/24 23:46 Sodium Chloride Flush 0.9% 10 Ml Syringe IVP 10 ml PRN PRN Administration NEEDED PER PROVIDER ORDERS Objective Vital Signs/Intake & Output Reviewed Vital Signs: Yes Vital Signs: Vital Signs x48h Temp Pulse Pulse Resp BP BP Pulse Ox 06/14/24 10:00 123 H 23 99/67 96 06/14/24 09:00 120 H 16 98/66 95 06/14/24 08:00 36.6 C 136 H 21 99/67 98 06/14/24 07:00 114 H 13 103/53 L 100 06/14/24 06:00 122 H 17 95/62 99 06/14/24 05:52 122 H 12 90/53 L 99 06/14/24 05:32 134 H 11 L 95/64 96 06/14/24 05:18 144 H 16 99/74 95 06/14/24 05:00 136 H 11 L 91/73 96 06/14/24 04:52 136 H 12 110/54 L 98 06/14/24 04:47 138 H 11 L 101/68 97 06/14/24 04:41 136 H 97 H 96/68 11 L 06/14/24 04:35 148 H 15 122/84 99 06/14/24 04:34 133 H 17 101/77 99 06/14/24 04:34 145 H 101/77 06/14/24 04:00 140 H 15 140/78 H 98 06/14/24 03:42 36.5 C 126 H 10 L 113/88 97 06/14/24 03:33 144 H 12 130/90 98 06/14/24 03:00 139 H 16 111/81 97 Intake & Output: Intake & Output 06/11/24 06/12/24 06/13/24 06/14/24 23:59 23:59 23:59 23:59 Intake Total 2118 / 2118 1403 / 1403 Output Total 1700 / 1700 700 / 700 Balance 418 / 418 703 / 703 Weight (kg) 68 kg 69.5 kg Objective General Appearance: positive No acute distress, Alert and Other (5 feet 3 inches, 69.5 kg. Appears slightly older than stated age. Comfortable sitting up in chair) Eyes Bilateral: positive PERRL and EOMI ENT: positive No signs of dehydration Neck: positive Nml inspection and No JVD; negative Carotid bruit Respiratory: positive No respiratory distress and Breath sounds nml; negative Wheezes, Rales or Rhonchi Cardiovascular: positive Irregularly irregular and Tachycardia Abdomen: positive Non-tender, No organomegaly and Nml bowel sounds Skin: positive Warm and Dry Extremities: positive Non-tender, Full ROM and No pedal edema Neurologic/Psychiatric: positive Oriented x3, CN's nml (2-12), Motor nml, Sensation nml and Mood/affect nml Lab Results 06/13/24 06:04 06/14/24 05:18 Other Labs: Lab Results x24hrs 06/14/24 06/13/24 06/13/24 Range/Units 05:18 16:52 11:33 VBG pH 7.432 H (7.31-7.41) Ionized Calcium 1.12 L (1.15-1.33) mmol/L Potassium 4.0 4.0 (3.5-4.5) mmol/L Phosphorus 2.8 (2.5-5.0) mg/dL Magnesium 2.0 (1.7-2.3) mg/dL Troponin I High Sens 77.7 H* 157.6 H* (2.3-14.8) ng/L ABX Reporting Has patient been on IV antibiotics over the past 48 hours?: No Assessment/Plan Problem List (1) Atrial fibrillation with rapid ventricular response: Impression: Troponins are rising with this. Minimally so. I think this is more due to the continued tachycardia than true ischemic event. Unfortunately has tachycardia again. Have spoken to the mapping editor on-call again. He is hesitant to add amiodarone because if she gets bradycardic it will take too long to reverse that due to its half-life. He is advising that I increased her Cardizem CD from 180 mg to 240 mg. So I have added 60 mg p.o. short acting to today's 180 mg. Stay on the diltiazem drip. And increase to 240 mg p.o. tomorrow. I will continue my previous order of as needed Lopressor 5 mg IV push for heart rate greater than 110 for longer than 5 minutes. I will also give one dose of dig 0.25 IVP. I will reevaluate in a few hours. she is in OBV status. If she stays beyond this evening I will change to inpatient status.
[2024-06-14] MEDS: diltiaZEM 30 MG TABLET PO STA (11:06)
[2024-06-14] MEDS: DIGOXIN 500 MCG/2 ML AMP IVP STA (11:22)
[2024-06-14] MEDS ORDERED: CARBOXYMETHYLCELLULOSE OPHTH DROPS EACHEYE PRN (12:06)
[2024-06-14 19:24] VITALS: TEMP 98.2
[2024-06-15] MEDS: diltiaZEM CD 240 MG CAPSULE PO SCH (07:48)
--- NOTE | 2024-06-15 07:57 | Discharge Summary ---
Discharge Summary Admit Date: 06/13/24 Discharge Date: 06/15/24 Discharging Provider: Fabi Chacon MD Primary Care Provider: Argenis Mcnamara MD [facility] Code Status: Attempt Resuscitation DIAGNOSES Discharge Diagnoses with Status of Each Condition: 1. Recurrent atrial fibrillation with RVR 2. Sinus pause to 6.8 seconds secondary to medication 3. Elevated troponin HPI History of Present Illness: This is a 79-year-old white female with a history of atrial fibrillation. She was brought in by ambulance in the early head start director hours of today. She had gone to bed around 10 PM and had a recurrence of severe palpitations. Prior to this her history goes back to: June 11, 2024 abrupt onset of palpitations. Chest pain and tightness radiating to the jaw and neck. Blood pressure 97/78. Cardioverted twice in the ER. Sent home to follow-up with primary care provider, cane flume watcher but no rate lowering drugs. Approximately May 28, 2024 Watchman procedure for recurrent atrial fibrillation. To be on Plavix and aspirin for 45 days. Summer 2023 nuclear stress test and echocardiogram with [facility], cardiology in [place]. November 19, 2023 she presented with chest tightness extending to the face and neck associated with A-fib with RVR that was abrupt in onset. She was feeling faint, dizzy and generally weak. All of this improved en route to the hospital when EMS gave her diltiazem and heart rate slowed. She was able to convert to sinus rhythm. She was given magnesium and potassium for magnesium of 3.2 and a magnesium of 1.7. In the ER today she was started on diltiazem drip. And admitted to the ICU. I saw her on her morning of admission, approximately 7:30 AM, she is still in atrial fibrillation. Her heart rate is in the 80s and 90s. I am stopping her diltiazem drip and giving her Cardizem CD 180 mg daily. She is exhausted. She feels like she just ran a marathon and feels generalized weakness and fatigue. No chest pain. No shortness of breath. Every once while she still feels like her heart has a burst of tachycardia and then it slows down again within moments. Tells me that she has not been started on a rate lowering agent because she is bradycardic at times. Past medical history: 1. Sjogren's/stiff muscle syndrome since the age of 30. She is not on a monoclonal antibody; she is on methotrexate. 2. A-fib as above 3. with endometriosis and a hysterectomy at the age of 31 4. Stress fractures of feet near the time of her correction 5. Spine abnormalities. She fell and broke her neck when she was 15. She fell off a horse. It took 4 days for them to recognize that her spine was fractured. She has had lumbar disc surgery for sciatica. 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 6. Osteoarthritis with a right total hip replacement 7. Deafness 8. Visual migraines 9. History of cataracts removed with lens implantation 2012 HOSPITAL COURSE Hospital Course: Patient was placed in the ICU on a diltiazem drip. The next morning her rate dropped into the 80s but she was still in sinus rhythm. She was started on p.o. Cardizem and diltiazem drip stopped about an hour later. Over the course the day her heart rate gradually increased until the early head start director hours of June 14 she had to be put back on a Cardizem drip. On the morning of the she was on the Cardizem drip, received 240 mg of p.o. Cardizem CD, given 1 dose of Lopressor IV push, 1 dose of digoxin 0.25 IV push. Late in the afternoon of the , the patient had an abrupt 6.8-second sinus pause. This is attributed to the multiple medication she was receiving. When her heartbeat came back, she was in sinus rhythm. I was speaking to Dr.Mahesh Farmer on a daily basis. He is the cane flume watcher on-call for her cane flume watcher at [facility], Dr. Saucedo. Troponin was elevated. We have supersensitive troponin and her troponin levels were 31.3> 137.9> 156.7> 77.7. I attribute this to myocardial stretching and not ischemia. EKG had no ST-T wave changes with this. He did recommend continuing her on Cardizem CD. And she will be on Cardizem CD 180 mg p.o. daily. I am also recommending that she be considered for a pacemaker since she has baseline bradycardia that gets worse with any rate lowering agent. She is discharged in stable condition. Blood pressure 133/62. Pulse 56. Respirations 13. O2 sat 98%. She is 5 feet 3 inches tall, 68 kg. An alert elderly female who looks stated age. Oriented to person, place, and time situation. Neck is supple there is no JVD. The lungs are clear and she has not had any congestive heart failure. She has a regular rate and rhythm with soft systolic ejection murmur. The abdomen is soft, nontender. Extremities are without edema. She is able to get out of her bed, go from supine to sitting, sitting to standing without an assist. Able to ambulate without assist. Her friend is picking her up and from here she will go straight to her cardiology office appointment at the [facility] today. Greater than 30 minutes spent coordinating discharge ALLERGIES Allergies Allergy/AdvReac Type Severity Reaction Status Date / Time cyclobenzaprine Allergy Unknown Unknown Verified 06/13/24 01:47 MEDICATIONS Ambulatory Orders Medication Instructions Recorded Confirmed albuterol sulfate 90 mcg/actuation 2 puff inhalation Q4H PRN Wheezing 04/08/13 06/13/24 aerosol inhaler (Ventolin HFA) carboxymethylcellulose sodium 1 % 15 ml ophthalmic (eye) DAILY 04/08/13 06/13/24 eye liquid gel drops (Refresh Liquigel) cholecalciferol (vitamin D3) 50 2,000 unit PO DAILY 04/08/13 06/13/24 mcg (2,000 unit) capsule (Vitamin D3) coenzyme [id number] E 100 mg-100 1 ea PO DAILY 04/08/13 06/13/24 unit capsule (CoQ10 SG) ginkgo biloba 120 mg tablet 120 mg PO DAILY 04/08/13 06/13/24 potassium gluconate 595 mg (99 mg) 1,190 mg PO BID 04/08/13 06/13/24 tablet spironolactone 25 0.5 tab PO DAILY 04/08/13 06/13/24 mg-hydrochlorothiazide 25 mg tablet (Aldactazide) vit B ubzefmw-P-MR-iron fum-vit E 1 ea PO DAILY 04/08/13 06/13/24 500 mg-400 mcg-18 mg iron tablet (Vitamins B Complex) methotrexate sodium (PF) 25 mg/mL 25 mg IM OAW 01/22/17 06/13/24 injection solution magnesium oxide 400 mg (241.3 mg 400 mg PO DAILY #30 tabs 11/19/23 06/13/24 magnesium) tablet clopidogrel 75 mg tablet 75 mg PO DAILY 06/11/24 06/13/24 fexofenadine 180 mg tablet 180 mg PO Q24H 06/11/24 06/13/24 (Anni Allergy) methylprednisolone 4 mg tablet 4 mg PO DAILY 06/11/24 06/13/24 omeprazole 20 mg capsule,delayed 20 mg PO DAILY 06/11/24 06/13/24 release vit C 250 mg-vit E 200 unit-zinc 4 cap PO DAILY 06/11/24 06/13/24 ox 12.5 lf-uzkfiy-kbitke-zeax capsule diltiazem HCl 180 mg 240 mg (1.3333 x 180 mg) PO DAILY 06/15/24 capsule,extended release 24 hr #30 caps (Cartia XT) LABS 06/13/24 06:04 06/14/24 05:18 TIME SPENT Time Spent in Discharge (Minutes): 35 Discharge Plan Discharge Patient Disposition: 01 Home, Self Care Condition: Stable Medically Cleared Date:: 06/15/24 Prescriptions: New diltiazem HCl [Cartia XT] 180 mg capsule,extended release 24hr 240 mg PO DAILY Qty: 30 0RF Continued spironolacton-hydrochlorothiaz [Aldactazide] 1 EACH tablet 0.5 tab PO DAILY albuterol sulfate [Ventolin HFA] 60 PUFFS/8 GM HFA aerosol inhaler 2 puff inhalation Q4H PRN (Reason: Wheezing) carboxymethylcellulose sodium [Refresh Liquigel] 15 ML drops, liquid gel 15 ml ophthalmic (eye) DAILY ginkgo biloba 120 MG tablet 120 mg PO DAILY CoQ10 SG 100 1 EACH capsule 1 ea PO DAILY potassium gluconate 99 MG tablet 1,190 mg PO BID cholecalciferol (vitamin D3) [Vitamin D3] 2,000 UNIT capsule 2,000 unit PO DAILY Vitamins B Complex 1 EACH tablet 1 ea PO DAILY methotrexate sodium (PF) 25 MG/ML solution 25 mg IM OAW magnesium oxide 400 MG tablet 400 mg PO DAILY Qty: 30 0RF vit C-E-zinc hn-gned-iat-zeax 250 mg-200 unit -12.5 mg-1 mg capsule 4 cap PO DAILY fexofenadine [Anni Allergy] 180 mg tablet 180 mg PO Q24H omeprazole 20 mg capsule,delayed release(DR/EC) 20 mg PO DAILY methylprednisolone 4 mg tablet 4 mg PO DAILY clopidogrel 75 mg tablet 75 mg PO DAILY Activity Restrictions: Activity as Tolerated Diet: Regular Health Concerns: In October 2023 you presented to emergency room with chest tightness that radiated up into your neck and face and was found to have a new abnormal rhythm called atrial fibrillation. You felt weak and dizzy. And Cardizem worked to slow you down at the time and you went back to a normal rhythm. You were seen by cardiology in [place] that summer and you underwent a nuclear stress test and echocardiogram and that was normal. Then in May you underwent a Watchman procedure for recurrent atrial fibrillation. You are on Plavix for 45 days. You then presented to emergency room again with an abrupt onset of palpitations on June 11. Again chest tightness that radiated to your jaw and neck. You were electrically cardioverted twice and sent home when he went into sinus rhythm. On June 12, you had another abrupt onset of palpitations around 7:30 in the morning. In the emergency room you were started on intravenous diltiazem drip and that slowed you down enough that we thought we could stop it and we put you on oral Cardizem. You were still in atrial fibrillation. Over the next 2 days your atrial fibrillation would still become uncontrolled with heart rates into the 130s and 140s. I put you back on the Cardizem drip. I gave you intravenous Lopressor. I gave you 1 dose of digoxin. I was updating your cardiology office every day by speaking to Dr. Jonatan Farmer (educational advisor for Dr. Saucedo) on the phone. On June 14 you had an abrupt pause of 6.8 seconds. And when your heart rate came back it was in sinus rhythm in the 30s and 40s. Your heartbeat has remained in sinus rhythm. Your cane flume watcher had asked us to start you on Cardizem and you are taking that here. I am sending a prescription for Cardizem CD 180 mg to [facility] [place]. You are due to see your cane flume watcher today. Instructions for home: 1. Please make sure you see your primary care provider in the next 3 to 4 weeks for continuity of care 2. It is wonderful that you are going to be seeing your cane flume watcher today. Take these paperwork with you so he can see what happened.I can see where they hesitate to give you medicines to slow down your heart rate because you do get a very slow heart rate at times. I am suggesting that you may be a candidate for a pacemaker. Assessment: Patient is alert and oriented to person, place, time and situation. Lungs are clear. Heart rate has a regular rate and rhythm.. Plan of Treatment: . Print Language: Syriac Patient Instructions: Diltiazem extended-release capsules or tablets, Atrial Fibrillation
[2024-06-15 08:22] VITALS: BP 137/65; O2SAT 99
== END 2024-06-15 08:06 | disposition home or self-care (01) | DRG 310 ==
LOC: ED 01:37 → ICU 03:29
PROVIDERS: ADMIT Internal Medicine; ATTEND Internal Medicine

== ENCOUNTER 2024-06-20 02:13 | Inpatient (IN) ==
[2024-06-20 02:41] LABS: BASOPHILS # (AUTO) 0.1 10^3/uL (0.0-0.1); BASOPHILS % (AUTO) 0.6 %; EOSINOPHILS # (AUTO) 0.2 10^3/uL (0.0-0.7); EOSINOPHILS % (AUTO) 1.9 %; HCT - HEMATOCRIT 42.2 % (37.0-47.0); HGB - HEMOGLOBIN 13.9 g/dL (12.0-16.0); LYMPHOCYTES # (AUTO) 2.3 10^3/uL (1.5-3.5); LYMPHOCYTES % (AUTO) 22.8 %; MEAN CORPUSCULAR HEMOGLOBIN 32.5 pg (27.0-31.0); MEAN CORPUSCULAR HGB CONC 32.9 g/dL (32.0-36.0); MEAN CORPUSCULAR VOLUME 98.6 fL (81.0-99.0); MEAN PLATELET VOLUME 9.1 fL (7.9-10.8); MONOCYTES # (AUTO) 0.9 10^3/uL (0.0-1.0); NEUTROPHILS # (AUTO) 6.5 10^3/uL (1.5-6.6); NEUTROPHILS % (AUTO) 65.2 %; PLT - PLATELET COUNT 381 10^3/uL (130-450); RED BLOOD COUNT 4.28 10^6/uL (4.20-5.40); RED CELL DISTRIBUTION WIDTH 15.9 % (12.0-15.0); WHITE BLOOD COUNT 9.9 x10^3/uL (4.8-10.8)
[2024-06-20 02:54] LABS: MAGNESIUM 2.3 mg/dL (1.7-2.3)
--- NOTE | 2024-06-20 02:58 | ED Physician Documentation ---
History of Present Illness Stated complaint Stated Complaint: AFIB Chief complaint Chief Complaint: Cardiac History obtained from History obtained from: Patient and EMS Treatment prior to arrival Treatment prior to arrival: Patient 79-year-old female with past medical significant for paroxysmal atrial fibrillation presents with atrial fibrillation. Brought in via EMS. Woke from sleep at approximately 0100 hrs. in A-fib with a rapid ventricular response. Seen multiple times in the emergency department for similar presentation. Currently has Watchman device and is following with cardiology at [facility]. Reports has follow-up with electrocardio physiology in a few months as well as further cardiac testing. Denies chest pain but reports some mild shortness of breath. [place] Coma Scale Assess Eye opening: Spontaneous Verbal response: Oriented Motor response: Obeys Commands Total score: 15 Review of Systems Status of ROS: 10 or more systems reviewed and unremarkable except as noted in history and below Cardiovascular Reports: Irregular heart rate, palpitations and shortness of breath with exertion Respiratory Reports: Shortness of breath Meds/Allgy Home Medications Ambulatory Orders Medication Instructions Recorded Confirmed albuterol sulfate 90 mcg/actuation 2 puff inhalation Q4H PRN Wheezing 04/08/13 06/20/24 aerosol inhaler (Ventolin HFA) carboxymethylcellulose sodium 1 % 1 drp ophthalmic (eye) DAILY PRN 04/08/13 06/20/24 eye liquid gel drops (Refresh dry eye(s) Liquigel) cholecalciferol (vitamin D3) 50 2,000 unit PO DAILY 04/08/13 06/20/24 mcg (2,000 unit) capsule (Vitamin D3) coenzyme L36-urzpkvf E 100 mg-100 1 ea PO DAILY 04/08/13 06/20/24 unit capsule (CoQ10 SG) ginkgo biloba 120 mg tablet 120 mg PO DAILY 04/08/13 06/20/24 potassium gluconate 595 mg (99 mg) 1,190 mg PO BID 04/08/13 06/20/24 tablet spironolactone 25 0.5 tab PO DAILY 04/08/13 06/20/24 mg-hydrochlorothiazide 25 mg tablet (Aldactazide) vit B lavjcno-R-SP-iron fum-vit E 1 ea PO DAILY 04/08/13 06/20/24 500 mg-400 mcg-18 mg iron tablet (Vitamins B Complex) methotrexate sodium (PF) 25 mg/mL 25 mg IM MO 01/22/17 06/20/24 injection solution magnesium oxide 400 mg (241.3 mg 400 mg PO DAILY #30 tabs 11/19/23 06/20/24 magnesium) tablet clopidogrel 75 mg tablet 75 mg PO DAILY 06/11/24 06/20/24 fexofenadine 180 mg tablet 180 mg PO Q24H 06/11/24 06/20/24 (Anni Allergy) methylprednisolone 4 mg tablet 4 mg PO DAILY 06/11/24 06/20/24 omeprazole 20 mg capsule,delayed 20 mg PO DAILY 06/11/24 06/20/24 release vit C 250 mg-vit E 200 unit-zinc 4 cap PO DAILY 06/11/24 06/20/24 ox 12.5 xa-qjzkmi-cgvnds-zeax capsule acetaminophen 650 mg 1,300 mg PO Q12H 06/20/24 06/20/24 tablet,extended release (8 Hour Pain Reliever) oipjjyt-gkbhhwptazbfu-ddvjbcpr 250 1 tab PO DAILY PRN pain 06/20/24 06/20/24 mg-250 mg-65 mg tablet (Excedrin Extra Strength) diltiazem HCl 180 mg 180 mg PO DAILY 06/20/24 06/20/24 capsule,extended release 24 hr (Cartia XT) Allergies Allergies Allergy/AdvReac Type Severity Reaction Status Date / Time cyclobenzaprine Allergy Unknown Unknown Verified 06/20/24 02:22 [facility] Medical History Medical History Atrial fibrillation Atrial fibrillation with rapid ventricular response onset 10/2023. ER Cardizem>sent home. summer w Echo and ETT all neg. Watchman 05/2024. Abrupt afib with ER 06/11/24 cardioverted twice. sent home. 06/12/24 again this time admit to ICU w dilt drip + po card+ IV lopressor+IV dig. converted to NSR. May need pacer Ventral hernia without obstruction or gangrene Presence of Watchman left atrial appendage closure device Blind one eye Cataracts, bilateral removed w lens implants, 2012 Migraine with visual aura Stress fracture of foot Stiff extremity syndrome Sjogren syndrome Osteoarthritis of hip Radiculopathy c spine from fall off horse age 15 w fx, T spine currently (on MRI), L spine with diskectomy Endometriosis Nulliparity Surgical History Surgical History H/O lumbar discectomy Status post total hip replacement, right S/P DESMOND (total abdominal hysterectomy) Social History Social History Smoking Status: Never smoker If you are a former smoker, when did you quit? (Date/Year): n/a Number of Years Smoked: 0 How many cigarettes a day do you smoke? (20 cigarettes=1 Pk): 0 Second hand tobacco smoke exposure: No Do you dip or chew tobacco?: No Do you vape?: No Patient requests smoking cessation consult: No Initiate information on smoking cessation: No Relationship: Level: Assisted Home Mobility Equipment: Cane Do you feel safe in your home environment?: Yes Suffered physical, verbal, emotional, or financial abuse?: No History of Abuse: No Substance Use: denies use POLST Patient has POLST: No Exam Constitutional normal general appearance and no apparent distress HENMT normocephalic and head/scalp atraumatic Eyes PERRL Neck/C-Spine visual inspection normal Lymph no lymphadenopathy noted Chest inspection of chest normal Respiratory breath sounds equal bilaterally, normal respiratory effort, clear to auscultation bilaterally, no wheezes, no rales, no retractions and no use of accessory muscles Cardiovascular Irregularly irregular rapid heart rate Gastrointestinal abdomen normal to inspection, abdomen soft to palpation and nontender to palpation Genitourinary no CVA tenderness and bladder normal to palpation Extremities normal to inspection Neurology personal development educator II-XII intact, no movement abnormality noted, no focal motor deficit noted and no sensory deficits noted Psychiatry mental status grossly normal Skin skin color normal Results Vitals Vitals: Vital Signs - 24 hr 06/20/24 02:18 06/20/24 03:05 06/20/24 03:07 Temperature 36.6 C Temperature Source Temporal Artery Scan Heart Rate Pulse Rate 153 H 153 H Respiratory Rate 16 10 L Blood Pressure 102/86 102/86 O2 Saturation 98 99 O2 Source Room air Room air If not protocol: Oxygen Flow, liters/minute 2 FiO2 (%) 25 Sedation scale 0-Fully awake Pain Intensity 0 0 06/20/24 03:10 06/20/24 03:11 06/20/24 03:12 Temperature Temperature Source Heart Rate 145 H 117 H Pulse Rate Respiratory Rate 18 2 L Blood Pressure 97/46 L O2 Saturation 97 98 O2 Source Nasal cannula Ambu bag Non-rebreather mask If not protocol: Oxygen Flow, liters/minute 2 15 FiO2 (%) Sedation scale 4-Responsive to painful Pain Intensity 06/20/24 03:13 06/20/24 03:15 06/20/24 03:18 Temperature Temperature Source Heart Rate 150 H 148 H 156 H Pulse Rate Respiratory Rate 10 L 10 L 9 L Blood Pressure 105/81 H 85/63 L 107/76 O2 Saturation 98 98 98 O2 Source Non-rebreather mask Nasal cannula Nasal cannula If not protocol: Oxygen Flow, liters/minute 15 4 4 FiO2 (%) Sedation scale 0-Fully awake 0-Fully awake Pain Intensity 06/20/24 03:20 06/20/24 03:28 06/20/24 03:35 Temperature Temperature Source Heart Rate 140 H 142 H Pulse Rate Respiratory Rate 10 L 12 Blood Pressure 95/76 115/93 H O2 Saturation 98 98 O2 Source Nasal cannula Nasal cannula If not protocol: Oxygen Flow, liters/minute 2 2 FiO2 (%) Sedation scale 0-Fully awake 0-Fully awake Pain Intensity 0 06/20/24 03:42 06/20/24 03:48 06/20/24 03:53 Temperature Temperature Source Heart Rate 149 H Pulse Rate 145 H 147 H Respiratory Rate 9 L 10 L 10 L Blood Pressure 143/86 H 81/54 L 99/66 O2 Saturation 95 96 96 O2 Source Room air Room air Room air If not protocol: Oxygen Flow, liters/minute FiO2 (%) Sedation scale 0-Fully awake Pain Intensity 0 0 06/20/24 03:58 06/20/24 04:03 06/20/24 04:12 Temperature Temperature Source Heart Rate 146 H Pulse Rate 149 H 135 H Respiratory Rate 10 L 10 L 12 Blood Pressure 88/60 L 117/75 113/81 H O2 Saturation 94 96 96 O2 Source Room air Room air Room air If not protocol: Oxygen Flow, liters/minute FiO2 (%) Sedation scale 0-Fully awake Pain Intensity 0 0 06/20/24 04:22 06/20/24 04:24 06/20/24 04:29 Temperature Temperature Source Heart Rate Pulse Rate 149 H 156 H 124 H Respiratory Rate 12 12 Blood Pressure 75/61 L 89/58 L 94/78 O2 Saturation 95 95 96 O2 Source Room air Room air Room air If not protocol: Oxygen Flow, liters/minute FiO2 (%) Sedation scale Pain Intensity 0 0 0 06/20/24 04:34 06/20/24 04:40 06/20/24 04:42 Temperature Temperature Source Heart Rate 139 H Pulse Rate 122 H 134 H Respiratory Rate 10 L 12 12 Blood Pressure 100/81 90/58 L 90/58 L O2 Saturation 96 95 96 O2 Source Room air Room air Room air If not protocol: Oxygen Flow, liters/minute FiO2 (%) Sedation scale 0-Fully awake Pain Intensity 0 0 06/20/24 04:45 06/20/24 04:50 06/20/24 04:55 Temperature Temperature Source Heart Rate Pulse Rate 137 H 159 H 140 H Respiratory Rate 16 10 L 16 Blood Pressure 100/72 112/71 143/110 H O2 Saturation 95 97 97 O2 Source Room air Room air Room air If not protocol: Oxygen Flow, liters/minute FiO2 (%) Sedation scale Pain Intensity 0 0 0 06/20/24 05:01 06/20/24 05:05 06/20/24 05:09 Temperature Temperature Source Heart Rate Pulse Rate 142 H 142 H 124 H Respiratory Rate 16 16 15 Blood Pressure 125/66 119/83 110/77 O2 Saturation 97 96 96 O2 Source Room air Room air If not protocol: Oxygen Flow, liters/minute FiO2 (%) Sedation scale Pain Intensity 0 0 06/20/24 05:15 06/20/24 05:24 06/20/24 05:40 Temperature Temperature Source Heart Rate Pulse Rate 139 H 135 H 149 H Respiratory Rate 16 15 23 Blood Pressure 120/66 125/74 129/68 O2 Saturation 94 95 95 O2 Source Room air Room air Room air If not protocol: Oxygen Flow, liters/minute FiO2 (%) Sedation scale Pain Intensity 0 0 0 06/20/24 05:54 06/20/24 05:59 06/20/24 06:05 Temperature Temperature Source Heart Rate Pulse Rate 116 H 144 H 142 H Respiratory Rate 15 Blood Pressure 95/66 106/72 135/89 H O2 Saturation 95 96 O2 Source Room air Room air If not protocol: Oxygen Flow, liters/minute FiO2 (%) Sedation scale Pain Intensity 0 0 06/20/24 06:10 06/20/24 06:15 06/20/24 06:22 Temperature Temperature Source Heart Rate Pulse Rate 144 H 165 H 139 H Respiratory Rate Blood Pressure 128/80 112/76 97/68 O2 Saturation O2 Source If not protocol: Oxygen Flow, liters/minute FiO2 (%) Sedation scale Pain Intensity 06/20/24 06:25 06/20/24 06:30 Temperature Temperature Source Heart Rate Pulse Rate 134 H 143 H Respiratory Rate Blood Pressure 102/84 101/69 O2 Saturation 95 O2 Source Room air If not protocol: Oxygen Flow, liters/minute FiO2 (%) Sedation scale Pain Intensity 0 Oxygen O2 Source Room air EKG (time done) 0219: EKG releavant findings:: EKG personally interpreted by author of this note. Relevant findings are: Atrial fibrillation with rate 144 bpm. Normal axis. Normal QRS and QTc intervals. No ST segment elevations. Nonspecific ST-T wave abnormalities. 0316: EKG releavant findings:: EKG personally interpreted by author of this note. Relevant findings are: Atrial fibrillation with rate 145 bpm. Normal axis. Normal QRS and QTc intervals. No ST segment elevations, nonspecific ST-T wave abnormalities throughout. Labs Labs: Laboratory Tests 06/20/24 06/20/24 02:30 05:05 WBC 9.9 RBC 4.28 Hgb 13.9 Hct 42.2 MCV 98.6 MCH 32.5 H MCHC 32.9 RDW 15.9 H Plt Count 381 MPV 9.1 Neut # (Auto) 6.5 Lymph # (Auto) 2.3 [place] # (Auto) 0.9 Eos # (Auto) 0.2 Baso # (Auto) 0.1 Absolute Nucleated RBC 0.00 Nucleated RBC % 0.0 Sodium 140 Potassium 3.8 Chloride 105 Carbon Dioxide 23 Anion Gap 12.0 BUN 37 H Creatinine 1.0 Estimated GFR (MDRD) 53 L Glucose 88 Calcium 9.7 Magnesium 2.3 Total Bilirubin 0.6 AST 21 ALT 22 Alkaline Phosphatase 91 Troponin I High Sens 19.7 H* 27.1 H* Total Protein 7.0 Albumin 4.3 Globulin 2.7 Albumin/Globulin Ratio 1.6 TSH 2.74 Procedures Cardioversion - Major Attempt 1: Time of attempt: 03:12 Indication: Tachyarrhythmia Risks, benefits, alternatives explained to: Pt Prep: IV, O2, pediatric anesthesiologist, Pulse ox and Airway equip Meds: Fentanyl CS via: Pads and AP approach Sync: Biphasic and 200j Post cardioversion rhythm: A-fib Complications: Apnea Performed by: ED MD Medical Decision Making ED course Complexity details: reviewed old records, reviewed results, re-evaluated patient, considered differential, d/w patient and d/w consultant rn ED course: Patient 79-year-old with known history atrial fibrillation on aspirin and Plavix presents with rapid heart rate. Hospitalized approximately 2 weeks ago for very similar presentation. It appears that she has responded well to electrical cardioversion in the past however on return 1 day after electrical cardioversion required hospitalization for several days with continuous Cardizem gtt. She is afebrile, he medically stable on arrival to the emergency department but in atrial fibrillation with rapid ventricular response on initial EKG. She endorses for some mild shortness of breath on arrival but no chest pain that would be of high concern for acute cardiac ischemia. Her chest x-ray per my interpretation is benign. Discussed options with patient's and we underwent electrical cardioversion here in the emergency department however this was unsuccessful. 1 attempt with synchronized biphasic 200 J with a brief run of sinus rhythm with immediate return to A-fib was noted during the procedure. Patient had an apneic episode immediately after this, this was in the setting of minimal sedation with 225 mg doses of dipper Van. Given the apneic episode did not feel it was safe to continue attempts at cardioversion and instead transitioned to medication management. Unfortunately after 3 rounds of IV Cardizem patient had still not gained adequate rate control and I started a Cardizem gtt. Her care was discussed with the telehospitalist service who graciously agreed to hospitalize for further evaluation and treatment. Discharge Plan Discharge Patient Disposition: [facility] DC/Xfer Condition: Stable Clinical Impression: Atrial fibrillation Qualifiers: Atrial fibrillation type: unspecified Qualified Code(s): I48.91 - Unspecified atrial fibrillation Interventions: ED Admission Assessment Last Done: 06/20/24 07:21
[2024-06-20 03:00] LABS: ALBUMIN 4.3 g/dL (3.2-5.5); ALBUMIN/GLOBULIN RATIO 1.6 (1.0-2.2); BILIRUBIN,TOTAL 0.6 mg/dL (0.2-1.0); CALCIUM 9.7 mg/dL (8.5-10.3); POTASSIUM 3.8 mmol/L (3.5-4.5)
[2024-06-20] MEDS: ONDANSETRON 4 MG/2 ML VIAL IVP STA (03:03)
[2024-06-20] MEDS: fentaNYL 100 MCG/2 ML VIAL IVP STA (03:05)
[2024-06-20 03:07] LABS: THYROID STIMULATING HORMONE 2.74 uIU/mL (0.34-5.60)
[2024-06-20] MEDS: PROPOFOL 200 MG/20 ML VIAL IVP STA (03:08)
[2024-06-20] MEDS: diltiaZEM INJ 5 MG/ML VIAL IVP PRN (03:44)
[2024-06-20] MEDS: SODIUM CHLORIDE 0.9% 1,000 ML IV STA (04:33)
[2024-06-20 05:13] VITALS: BP 90/58
[2024-06-20] MEDS ORDERED: diltiaZEM INJ 5 MG/ML VIAL ONE (05:49)
[2024-06-20] MEDS: diltiaZEM INJ 125 MG in DEXTROSE 5% 100 ML IV STA (06:02)
[2024-06-20] MEDS ORDERED: SODIUM CHLORIDE FLUSH 0.9% 10 ML SYRINGE IVP PRN (06:09)
[2024-06-20] MEDS ORDERED: ONDANSETRON 4 MG/2 ML VIAL IVP PRN (06:14)
--- NOTE | 2024-06-20 06:29 | HISTORY & PHYSICAL EXAMINATION ---
Chief Complaint Chief Complaint Chief Complaint: SOB and palpitation History of Present Illness Admitted From Admitted From:: ED History Obtained From Records Reviewed: EMR History obtained from: Patient and ED staff Exam Limitations: Telemedicine History of Present Illness HPI Comment/Other: [id number] c known atrial fibrillation s/p Watchman and not on anticoagulation who was just hospitalized 06/13-06/15 for atrial fibrillation c RVR who is now returning with atrial fibrillation with RVR again. Patient reportedly has been taking her diltiazem as prescribed. She awoke around 1am with palpitation and mild SOB. She knew she was in RVR and came into the ED for management. Patient mentioned seeing her liner checker after discharge from the hospital. There is plan for her to see a EP physician in July and to get a cardiac CT in August. In the ED, patient arrived with RVR. ED attempted cardioversion without success. She was given dilt bolus x3 without rate control. She was placed on a dilt gtt. Review of Systems Status of ROS: 10 or more systems reviewed and unremarkable except as noted in history and below Cardiovascular Reports: Irregular heart rate, palpitations and shortness of breath with exertion Respiratory Reports: Shortness of breath [facility] Medical History Medical History (Updated 06/20/24 @ 06:39 by Paolo Dukes DO) Atrial fibrillation Atrial fibrillation with rapid ventricular response onset 10/2023. ER Cardizem>sent home. summer w Echo and ETT all neg. Watchman 05/2024. Abrupt afib with ER 06/11/24 cardioverted twice. sent home. 06/12/24 again this time admit to ICU w dilt drip + po card+ IV lopressor+IV dig. converted to NSR. May need pacer Ventral hernia without obstruction or gangrene Presence of Watchman left atrial appendage closure device Blind one eye Cataracts, bilateral removed w lens implants, 2012 Migraine with visual aura Stress fracture of foot Stiff extremity syndrome Sjogren syndrome Osteoarthritis of hip Radiculopathy c spine from fall off horse age 15 w fx, T spine currently (on MRI), L spine with diskectomy Endometriosis Nulliparity Surgical History Surgical History H/O lumbar discectomy Status post total hip replacement, right S/P DESMOND (total abdominal hysterectomy) Social History Social History Smoking Status: Never smoker If you are a former smoker, when did you quit? (Date/Year): n/a Number of Years Smoked: 0 How many cigarettes a day do you smoke? (20 cigarettes=1 Pk): 0 Second hand tobacco smoke exposure: No Do you dip or chew tobacco?: No Do you vape?: No Initiate information on smoking cessation: No Relationship: Level: Assisted Home Mobility Equipment: Cane Do you feel safe in your home environment?: Yes Suffered physical, verbal, emotional, or financial abuse?: No History of Abuse: No Substance Use: denies use POLST Patient has POLST: No Meds/Allgy Home Medications Ambulatory Orders Medication Instructions Recorded Confirmed albuterol sulfate 90 mcg/actuation 2 puff inhalation Q4H PRN Wheezing 04/08/13 06/20/24 aerosol inhaler (Ventolin HFA) carboxymethylcellulose sodium 1 % 15 ml ophthalmic (eye) DAILY 04/08/13 06/20/24 eye liquid gel drops (Refresh Liquigel) cholecalciferol (vitamin D3) 50 2,000 unit PO DAILY 04/08/13 06/20/24 mcg (2,000 unit) capsule (Vitamin D3) coenzyme T48-alkncyc E 100 mg-100 1 ea PO DAILY 04/08/13 06/20/24 unit capsule (CoQ10 SG) ginkgo biloba 120 mg tablet 120 mg PO DAILY 04/08/13 06/20/24 potassium gluconate 595 mg (99 mg) 1,190 mg PO BID 04/08/13 06/20/24 tablet spironolactone 25 0.5 tab PO DAILY 04/08/13 06/20/24 mg-hydrochlorothiazide 25 mg tablet (Aldactazide) vit B lgygekp-Q-JU-iron fum-vit E 1 ea PO DAILY 04/08/13 06/20/24 500 mg-400 mcg-18 mg iron tablet (Vitamins B Complex) methotrexate sodium (PF) 25 mg/mL 25 mg IM OAW 01/22/17 06/20/24 injection solution magnesium oxide 400 mg (241.3 mg 400 mg PO DAILY #30 tabs 11/19/23 06/20/24 magnesium) tablet clopidogrel 75 mg tablet 75 mg PO DAILY 06/11/24 06/20/24 fexofenadine 180 mg tablet 180 mg PO Q24H 06/11/24 06/20/24 (Anni Allergy) methylprednisolone 4 mg tablet 4 mg PO DAILY 06/11/24 06/20/24 omeprazole 20 mg capsule,delayed 20 mg PO DAILY 06/11/24 06/20/24 release vit C 250 mg-vit E 200 unit-zinc 4 cap PO DAILY 06/11/24 06/20/24 ox 12.5 ax-ozpiug-lhfpkm-zeax capsule diltiazem HCl 180 mg 240 mg (1.3333 x 180 mg) PO DAILY 06/15/24 06/20/24 capsule,extended release 24 hr #30 caps (Cartia XT) Allergies Allergies Allergy/AdvReac Type Severity Reaction Status Date / Time cyclobenzaprine Allergy Unknown Unknown Verified 06/20/24 02:22 Exam Constitutional normal general appearance and no apparent distress HENMT normocephalic and head/scalp atraumatic Eyes PERRL Neck/C-Spine visual inspection normal Lymph no lymphadenopathy noted Chest inspection of chest normal Respiratory breath sounds equal bilaterally, normal respiratory effort, clear to auscultation bilaterally, no wheezes, no rales, no retractions and no use of accessory muscles Cardiovascular Irregularly irregular rapid heart rate Gastrointestinal abdomen normal to inspection, abdomen soft to palpation and nontender to palpation Genitourinary no CVA tenderness and bladder normal to palpation Extremities normal to inspection Neurology bellmaker II-XII intact, no movement abnormality noted, no focal motor deficit noted and no sensory deficits noted Psychiatry mental status grossly normal Skin skin color normal Conclusion/Plan Problem List (1) Atrial fibrillation with rapid ventricular response: Plan: recurrence despite being on proper dilt po at home. continue dilt gtt. icu admit. monitor on tele. day team to reach out to cardiology for recommendations and alternative options. trend cardiac enzymes. (2) Hypercoagulable state due to atrial fibrillation: Plan: s/p watchman. monitor. (3) Sjogren syndrome: Plan: managed outpatient with MTx. defer to outpatient followup (4) Migraine with visual aura: Plan: stable. no acute exacerbation on presentation. prn acetaminophen for now Plan HR control with dilt gtt and transition to po if possible. consider d/w cardiology about possible alternative management given freq RVR c ED/hospitalizations. Lab Results Lab results reviewed: Yes 06/20/24 02:30 06/20/24 02:30 Diagnostic Imaging Results Diagnostic Imaging Results: positive Prelim report reviewed Diagnostic Imaging Results Comments: prelim. negative for acute findings EKG Results EKG Interpreted Independently: Yes EKG Findings: afib c RVR HR 145 Core Measures Anticipated LOS I expect patient to be DC'd or transferred within 96 hours.: Yes Issues Hospital Issues and Management Plan: The patient consented to receive this telemedicine service, which I performed via live two-way audiovisual equipment. The patient is at ([facility]) and I am physically in [facility]. Full code Yesy SCDs, [facility] DO Internal Medicine Sound Physicians Tele Teacher Music DVT/VTE - Prophylaxis VTE/DVT Device ordered at admit?: Yes Telemedicine Consult Details Provider Location & Consult Time Telemedicine consultation conducted via videoconferencing?: Yes List names and roles of persons who participated in consult:: Patient and ED staff Telemedicine provider location:: [facility] Time Telemedicine consult began:: 06:00 Time Telemedicine consult completed:: 07:00
[2024-06-20] MEDS: CLOPIDOGREL 75 MG TABLET PO SCH (08:25)
[2024-06-20] MEDS: PANTOPRAZOLE 40 MG TABLET PO SCH (08:26)
[2024-06-20] MEDS: LORATADINE 10 MG TABLET PO SCH (08:26)
[2024-06-20] MEDS: SPIRONOLACTONE 25 MG TABLET PO SCH (08:26)
[2024-06-20] MEDS: COENZYME Q10 VITAMIN E PO SCH (08:29)
[2024-06-20] MEDS: SODIUM CHLORIDE FLUSH 0.9% 10 ML SYRINGE IVP SCH (08:29)
[2024-06-20] MEDS: DIGOXIN 500 MCG/2 ML AMP IVP SCH (08:30)
[2024-06-20] MEDS: AMIODARONE 150 MG/100 ML 100 ML IV ONE (08:30)
[2024-06-20] MEDS: SODIUM CHLORIDE 0.9% 500 ML IV ONE (08:30)
[2024-06-20] MEDS: ENOXAPARIN 100 MG/ML SYRINGE SUBQ SCH (08:51)
[2024-06-20] MEDS: AMIODARONE 360 MG/200 ML IV ONE (08:53)
[2024-06-20] MEDS: hydroCHLOROthiazide 12.5 MG CAPSULE PO SCH (08:56)
--- NOTE | 2024-06-20 09:11 | PHARMACY PROGRESS NOTE ---
Best Possible Medication History Admit Date and Time: 06/20/24 [id number] Home Medications Medication Instructions Recorded Confirmed Type albuterol sulfate 90 mcg/actuation 2 puff inhalation Q4H PRN Wheezing 04/08/13 06/20/24 History aerosol inhaler (Ventolin HFA) carboxymethylcellulose sodium 1 % 1 drp ophthalmic (eye) DAILY PRN 04/08/13 06/20/24 History eye liquid gel drops (Refresh dry eye(s) Liquigel) cholecalciferol (vitamin D3) 50 2,000 unit PO DAILY 04/08/13 06/20/24 History mcg (2,000 unit) capsule (Vitamin D3) coenzyme G53-akpiucd E 100 mg-100 1 ea PO DAILY 04/08/13 06/20/24 History unit capsule (CoQ10 SG) ginkgo biloba 120 mg tablet 120 mg PO DAILY 04/08/13 06/20/24 History potassium gluconate 595 mg (99 mg) 1,190 mg PO BID 04/08/13 06/20/24 History tablet spironolactone 25 0.5 tab PO DAILY 04/08/13 06/20/24 History mg-hydrochlorothiazide 25 mg tablet (Aldactazide) vit B drnhfri-C-VS-iron fum-vit E 1 ea PO DAILY 04/08/13 06/20/24 History 500 mg-400 mcg-18 mg iron tablet (Vitamins B Complex) methotrexate sodium (PF) 25 mg/mL 25 mg IM MO 01/22/17 06/20/24 History injection solution magnesium oxide 400 mg (241.3 mg 400 mg PO DAILY #30 tabs 11/19/23 06/20/24 Rx magnesium) tablet clopidogrel 75 mg tablet 75 mg PO DAILY 06/11/24 06/20/24 History fexofenadine 180 mg tablet 180 mg PO Q24H 06/11/24 06/20/24 History (Anni Allergy) methylprednisolone 4 mg tablet 4 mg PO DAILY 06/11/24 06/20/24 History omeprazole 20 mg capsule,delayed 20 mg PO DAILY 06/11/24 06/20/24 History release vit C 250 mg-vit E 200 unit-zinc 4 cap PO DAILY 06/11/24 06/20/24 History ox 12.5 qb-zhcwzf-tubnlv-zeax capsule acetaminophen 650 mg 1,300 mg PO Q12H 06/20/24 06/20/24 History tablet,extended release (8 Hour Pain Reliever) mimfils-otnqhrnfhlirv-syuhmwpi 250 1 tab PO DAILY PRN pain 06/20/24 06/20/24 History mg-250 mg-65 mg tablet (Excedrin Extra Strength) diltiazem HCl 180 mg 180 mg PO DAILY 06/20/24 06/20/24 History capsule,extended release 24 hr (Cartia XT) Processed by: Pharmacy Medications reviewed in ED?: Yes Medication History completed: Yes Patient Interview: Completed Secondary Source(s): Pharmacy records, Insurance records and Previous admit records [facility] Statement: As the person ultimately responsible for medication therapy, providers are able to order a medication from an existing home medication list in [facility] via the "Reconcile Routine" prior to Confirmation of that medication by sales support associate. Such practice is discouraged except when the physician, in their clinical judgment, deems that a medical need exists for a medication without regard to previous use.
--- NOTE | 2024-06-20 09:46 | XRAY Report ---
PROCEDURE: XR Chest 1V INDICATIONS: SOA TECHNIQUE: One view of the chest was acquired. COMPARISON: 06/13/2024, 06/11/2024 FINDINGS: Surgical changes and devices: Overlying leads and defibrillator pads can be seen. Lungs and pleura: No pleural effusions or pneumothorax. No consolidation. Mediastinum: Mediastinal contours appear normal. Calcification is seen of the aortic arch. Heart size is normal. Bones and chest wall: No suspicious bony lesions. Age-appropriate degenerative changes are seen. M ild dextroconvex scoliotic curvature is seen. Overlying soft tissues appear unremarkable. IMPRESSION: No mary acute portable chest abnormality is seen. Note: No significant discrepancy from the preliminary report. Reviewed by: Adams Funez MD on 06/20/2024 8:44 AM [facility] [[email or web address]] Approved by: Adams Funez MD on 06/20/2024 8:44 AM [facility] [[email or web address]] Station ID: [id number]
[2024-06-20] MEDS: AMIODARONE 360 MG/200 ML 200 ML IV SCH (14:33)
[2024-06-21 05:16] LABS: BASOPHILS # (AUTO) 0.1 10^3/uL (0.0-0.1); BASOPHILS % (AUTO) 0.8 %; EOSINOPHILS # (AUTO) 0.4 10^3/uL (0.0-0.7); EOSINOPHILS % (AUTO) 4.1 %; HCT - HEMATOCRIT 37.6 % (37.0-47.0); HGB - HEMOGLOBIN 12.3 g/dL (12.0-16.0); LYMPHOCYTES # (AUTO) 1.5 10^3/uL (1.5-3.5); LYMPHOCYTES % (AUTO) 17.2 %; MEAN CORPUSCULAR HEMOGLOBIN 33.1 pg (27.0-31.0); MEAN CORPUSCULAR HGB CONC 32.7 g/dL (32.0-36.0); MEAN CORPUSCULAR VOLUME 101.1 fL (81.0-99.0); MEAN PLATELET VOLUME 9.1 fL (7.9-10.8); MONOCYTES # (AUTO) 0.9 10^3/uL (0.0-1.0); MONOCYTES % (AUTO) 9.7 %; NEUTROPHILS # (AUTO) 5.9 10^3/uL (1.5-6.6); NEUTROPHILS % (AUTO) 67.7 %; PLT - PLATELET COUNT 325 10^3/uL (130-450); RED BLOOD COUNT 3.72 10^6/uL (4.20-5.40); RED CELL DISTRIBUTION WIDTH 16.5 % (12.0-15.0); WHITE BLOOD COUNT 8.7 x10^3/uL (4.8-10.8)
[2024-06-21 05:19] LABS: CALCIUM, IONIZED 1.15 mmol/L (1.15-1.33); VBG PH 7.463 (7.31-7.41)
[2024-06-21 05:21] LABS: INR 1.2 (0.8-1.2); PT - PROTHROMBIN TIME 12.9 secs (9.9-12.6)
[2024-06-21 05:33] LABS: CALCIUM 8.6 mg/dL (8.5-10.3); CREATININE 1.1 mg/dL (0.6-1.3); MAGNESIUM 2.1 mg/dL (1.7-2.3); PHOSPHORUS 3.1 mg/dL (2.5-5.0); POTASSIUM 4.1 mmol/L (3.5-4.5)
[2024-06-21 05:56] LABS: DIGOXIN 1.2 ng/mL
[2024-06-21] MEDS: AMIODARONE 200 MG TABLET PO SCH ×2 (08:34→21:17)
[2024-06-21] MEDS ORDERED: diltiaZEM CD 120 MG CAPSULE PO SCH (09:00)
--- NOTE | 2024-06-21 09:04 | PROVIDER PROGRESS NOTE ---
Subjective Subjective Subjective: Yesterday, patient converted out of atrial fibrillation to normal sinus rhythm. Her heart rate has been running in the 50s to 60s. For her, she states that is normal. She feels much better. Her tiredness has improved. The feeling of palpitations, as well as her heart racing has also improved. She denies any fevers, chills, chest pain. Current Medications Current Medications Current Medications: Current Medications Generic Name Dose Route Start Last Admin Trade Name Kennedy PRN Reason Stop Dose Admin Acetaminophen 650 mg 06/20/24 06:14 Acetaminophen 325 Mg Tablet PO Q4HR PRN Pain 1 to 4, or Fever Amiodarone HCl 200 mg 06/21/24 09:00 06/21/24 08:34 Amiodarone 200 Mg Tablet PO 200 mg DAILY MIRIAM Administration Clopidogrel Bisulfate 75 mg 06/20/24 09:00 06/21/24 08:34 Clopidogrel 75 Mg Tablet PO 75 mg DAILY MIRIAM Administration Hydrochlorothiazide 12.5 mg 06/20/24 09:00 06/21/24 08:34 Hydrochlorothiazide 12.5 Mg Capsule PO 12.5 mg DAILY MIRIAM Administration Loratadine 10 mg 06/20/24 09:00 06/21/24 08:34 Loratadine 10 Mg Tablet PO 10 mg DAILY MIRIAM Administration Ondansetron HCl 4 mg 06/20/24 06:14 Ondansetron 4 Mg/2 Ml Vial IVP Q6HR PRN Nausea / Vomiting Pantoprazole Sodium 40 mg 06/20/24 08:00 06/21/24 06:51 Pantoprazole 40 Mg Tablet PO 40 mg QDAC MIRIAM Administration Coenzyme A52-Ekylrrp 1 each 06/20/24 09:00 06/21/24 08:35 E PO 1 each DAILY MIRIAM Administration Sodium Chloride 10 ml 06/20/24 09:00 06/21/24 08:35 Sodium Chloride Flush 0.9% 10 Ml Syringe IVP 10 ml 0100,0900,1700 MIRIAM Administration Sodium Chloride 10 ml 06/20/24 06:09 Sodium Chloride Flush 0.9% 10 Ml Syringe IVP PRN PRN NEEDED PER PROVIDER ORDERS Spironolactone 12.5 mg 06/20/24 09:00 06/21/24 08:34 Spironolactone 25 Mg Tablet PO 12.5 mg DAILY MIRIAM Administration Objective Vital Signs/Intake & Output Reviewed Vital Signs: Yes Vital Signs: Vital Signs x48h Temp Pulse Resp BP Pulse Ox 06/21/24 07:00 53 L 16 148/66 H 97 06/21/24 06:00 62 17 135/80 H 95 06/21/24 05:00 98.8 F 52 L 14 152/66 H 96 06/21/24 04:00 50 L 17 125/61 97 06/21/24 03:00 52 L 18 146/67 H 95 06/21/24 02:00 49 L 16 120/59 L 98 Intake & Output: Intake & Output 06/18/24 06/19/24 06/20/24 06/21/24 23:59 23:59 23:59 23:59 Intake Total 2273 / 2273 200 / 200 Output Total 2250 / 2250 200 / 200 Balance 0 / 0 Weight (kg) 69 kg 65 kg Objective General Appearance: positive No acute distress, Alert and Other (5 feet 3 inches, 69.5 kg. Appears slightly older than stated age. Comfortable sitting up in chair) Eyes Bilateral: positive PERRL and EOMI ENT: positive No signs of dehydration Neck: positive Nml inspection and No JVD; negative Carotid bruit Respiratory: positive No respiratory distress and Breath sounds nml; negative Wheezes, Rales or Rhonchi Cardiovascular: positive No murmur and Irregularly irregular; negative Systolic murmur, Diastolic murmur or Gallop/S3 Abdomen: positive Non-tender, No organomegaly and Nml bowel sounds Skin: positive Warm and Dry Extremities: positive Non-tender, Full ROM and No pedal edema Neurologic/Psychiatric: positive Oriented x3, CN's nml (2-12), Motor nml, Sensation nml and Mood/affect nml Lab Results 06/21/24 04:31 06/21/24 04:31 Other Labs: Lab Results x24hrs 06/21/24 06/20/24 Range/Units 04:31 07:30 WBC 8.7 (4.8-10.8) x10^3/uL RBC 3.72 L (4.20-5.40) 10^6/uL Hgb 12.3 (12.0-16.0) g/dL Hct 37.6 (37.0-47.0) % MCV 101.1 H (81.0-99.0) fL MCH 33.1 H (27.0-31.0) pg MCHC 32.7 (32.0-36.0) g/dL RDW 16.5 H (12.0-15.0) % Plt Count 325 (130-450) 10^3/uL MPV 9.1 (7.9-10.8) fL Neut # (Auto) 5.9 (1.5-6.6) 10^3/uL Lymph # (Auto) 1.5 (1.5-3.5) 10^3/uL Henderson # (Auto) 0.9 (0.0-1.0) 10^3/uL Eos # (Auto) 0.4 (0.0-0.7) 10^3/uL Baso # (Auto) 0.1 (0.0-0.1) 10^3/uL Absolute Nucleated RBC 0.00 x10^3/uL Nucleated RBC % 0.0 /100WBC PT 12.9 H (9.9-12.6) secs INR 1.2 (0.8-1.2) VBG pH 7.463 H (7.31-7.41) Ionized Calcium 1.15 (1.15-1.33) mmol/L Sodium 141 (135-145) mmol/L Potassium 4.1 (3.5-4.5) mmol/L Chloride 111 (101-111) mmol/L Carbon Dioxide 23 (21-32) mmol/L Anion Gap 7.0 (6-13) BUN 26 H (6-20) mg/dL Creatinine 1.1 (0.6-1.3) mg/dL Estimated GFR (MDRD) 48 L (>89) Glucose 83 (74-104) mg/dL Calcium 8.6 (8.5-10.3) mg/dL Phosphorus 3.1 (2.5-5.0) mg/dL Magnesium 2.1 (1.7-2.3) mg/dL Nasal Screen MRSA (PCR) NEGATIVE (NEGATIVE) Last Dose Date Not Reportable Last Dose Time Not Reportable Digoxin 1.2 ng/mL ABX Reporting Has patient been on IV antibiotics over the past 48 hours?: No Assessment/Plan Problem List (1) Atrial fibrillation with rapid ventricular response: Impression: Patient presented in atrial fibrillation with rapid ventricular response. Was just here earlier this week, and discharged on oral diltiazem. Yesterday she was on a Cardizem drip. Her cardiology, Dr. Galaviz, was spoken withhe recommended amnio drip, as well as loading with digoxin. She received 2 doses of digoxin, as well as was started on a amnio drip. She then converted to normal sinus rhythm. This morning, I switched her to oral amiodarone. Her hammer driver was spoken with. He recommends loading dose with 400 mg twice a day for 10 days, followed by 400 mg once a day. Will monitor for one more day; discharge tomorrow with Meds to Beds so she goes home with her pills. She already has an appointment with an continuous conveyor screen drier in the outpatient setting for possible ablation. (2) Presence of Watchman left atrial appendage closure device: Impression: Completed Watchman procedure approximately 1 month ago, needs to be on Plavix for approximately 60 days. (3) Hypertension: Impression: Continue spironolactone, hydrochlorothiazide. Qualifiers: Hypertension type: unspecified Qualified Code(s): I10 - Essential (primary) hypertension (4) Sjogren syndrome: Impression: Stable, continue to manage in the outpatient setting, no active symptoms at this time. Qualifiers: Sjogren organ or system involvement: unspecified organ involvement Q ualified Code(s): M35.00 - Sjogren syndrome, unspecified
[2024-06-21] MEDS: AMIODARONE 200 MG TABLET PO STA (09:44)
[2024-06-21] MEDS: ACETAMINOPHEN 325 MG TABLET PO PRN (13:32)
--- NOTE | 2024-06-21 17:22 | Discharge Summary ---
"Discharge Summary Admit Date: 06/20/24 Discharge Date: 06/22/24 Discharging Provider: Dr. Fina Perez Primary Care Provider: Argenis Mcnamara MD [facility] Code Status: Attempt Resuscitation Discharge Facility Name: Home DIAGNOSES Admission Diagnoses: Atrial fibrillation with rapid ventricular response Hypercoagulable state due to atrial fibrillation Sjogren syndrome Migraine with visual aura Discharge Diagnoses with Status of Each Condition: Atrial fibrillation with rapid ventricular responseresolved. Patient was started on Cardizem, loaded with digoxin, and then started on amiodarone drip. She converted to normal sinus rhythm. Her able seaman was spoken withrecommended loading with amiodarone 400 mg twice a day for total of 10 days, followed by 400 mg once a day. She already is an appointment with electrophysiology in mid July, also advised to follow-up with her general able seaman. We did meds to beds to ensure that she would leave with her prescription. Presence of Watchman left atrial appendage closure devicecompleted procedure approximately 1.5 months ago, continue Plavix as instructed. Hypertensioncontinue spironolactone and hydrochlorothiazide. Sjogren syndromestable continue to manage in the outpatient setting. 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 Continue Tylenol, [place] as needed for pain. HPI History of Present Illness: Per Dr. Dukes: [id number] c known atrial fibrillation s/p Watchman and not on anticoagulation who was just hospitalized 06/13-06/15 for atrial fibrillation c RVR who is now returning with atrial fibrillation with RVR again. Patient reportedly has been taking her diltiazem as prescribed. She awoke around 1am with palpitation and mild SOB. She knew she was in RVR and came into the ED for management. Patient mentioned seeing her able seaman after discharge from the hospital. There is plan for her to see a EP physician in July and to get a cardiac CT in August. In the ED, patient arrived with RVR. ED attempted cardioversion without success. She was given dilt bolus x3 without rate control. She was placed on a dilt gtt. CONSULTS | PROCEDURES Procedures: Cardioversion in ED, CXR HOSPITAL COURSE Hospital Course: Patient is a 79-year-old female with a history of stroke and syndrome, atrial fibrillation who presented with rapid ventricular response. Initially, cardioversion was attempted. She did have an episode of apnea following this, so this was aborted. She was started on Cardizem drip, and admitted to the ICU. Despite being on 15 mg/h, her heart rate was not controlled. Her able seaman spoken with, he recommended loading with digoxin, and starting amiodarone drip. This converted her to normal sinus rhythm. Her able seaman group was spoken with againrecommended discharging on amiodarone 400 mg twice a day for a total of 10 days, loading dose. This was to be followed up with 400 mg once a day. She was also advised to continue following up with her able seaman in the outpatient setting. She already has an electrophysiology appointment set up for mid July to discuss ablation. Overall, the patient was feeling better. She was worried about not getting her medications as there was a bit of a time gap when she was discharged last time. As such, we arranged for medications to be delivered to her bedside prior to her going home. She was advised extensively to follow-up with her primary care physician, her able seaman, her seed corn production manager. She demonstrated understanding. As such, she was deemed suitable for discharge home. ALLERGIES Allergies Allergy/AdvReac Type Severity Reaction Status Date / Time cyclobenzaprine Allergy Unknown Unknown Verified 06/20/24 02:22 MEDICATIONS Ambulatory Orders Medication Instructions Recorded Confirmed albuterol sulfate 90 mcg/actuation 2 puff inhalation Q4H PRN Wheezing 04/08/13 06/20/24 aerosol inhaler (Ventolin HFA) carboxymethylcellulose sodium 1 % 1 drp ophthalmic (eye) DAILY PRN 04/08/13 06/20/24 eye liquid gel drops (Refresh dry eye(s) Liquigel) cholecalciferol (vitamin D3) 50 2,000 unit PO DAILY 04/08/13 06/20/24 mcg (2,000 unit) capsule (Vitamin D3) coenzyme X29-dndyewi E 100 mg-100 1 ea PO DAILY 04/08/13 06/20/24 unit capsule (CoQ10 SG) potassium gluconate 595 mg (99 mg) 1,190 mg PO BID 04/08/13 06/20/24 tablet spironolactone 25 0.5 tab PO DAILY 04/08/13 06/20/24 mg-hydrochlorothiazide 25 mg tablet (Aldactazide) vit B ogeizyq-D-UX-iron fum-vit E 1 ea PO DAILY 04/08/13 06/20/24 500 mg-400 mcg-18 mg iron tablet (Vitamins B Complex) methotrexate sodium (PF) 25 mg/mL 25 mg IM MO 01/22/17 06/20/24 injection solution magnesium oxide 400 mg (241.3 mg 400 mg PO DAILY #30 tabs 11/19/23 06/20/24 magnesium) tablet clopidogrel 75 mg tablet 75 mg PO DAILY 06/11/24 06/20/24 fexofenadine 180 mg tablet 180 mg PO Q24H 06/11/24 06/20/24 (Anni Allergy) methylprednisolone 4 mg tablet 4 mg PO DAILY 06/11/24 06/20/24 omeprazole 20 mg capsule,delayed 20 mg PO DAILY 06/11/24 06/20/24 release vit C 250 mg-vit E 200 unit-zinc 4 cap PO DAILY 06/11/24 06/20/24 ox 12.5 ps-tfyoau-fwfnky-zeax capsule acetaminophen 650 mg 1,300 mg PO Q12H 06/20/24 06/20/24 tablet,extended release (8 Hour Pain Reliever) jnvldby-vewbbfidgyygh-gqjbhxei 250 1 tab PO DAILY PRN pain 06/20/24 06/20/24 mg-250 mg-65 mg tablet (Excedrin Extra Strength) amiodarone 200 mg tablet 400 mg (2 x 200 mg) PO BID 8 days 06/21/24 #32 tabs amiodarone 400 mg tablet 400 mg PO DAILY #30 tabs 06/21/24 amiodarone 400 mg tablet 400 mg PO BID 8 days #16 tabs 06/22/24 amiodarone 400 mg tablet 400 mg PO DAILY #30 tabs 06/22/24 PHYSICAL EXAM AT DISCHARGE General Appearance: positive No acute distress and Alert; negative Anxious Eyes Bilateral: positive Normal inspection, PERRL and EOMI ENT: positive ENT inspection nml, Pharynx nml and No signs of dehydration Neck: positive Nml inspection, Thyroid nml, No JVD and Trachea midline Respiratory: positive Chest non-tender, No respiratory distress and Breath sounds nml; negative Wheezes, Rales or Rhonchi Cardiovascular: positive Regular rate & rhythm, No murmur, No gallop and Bradycardia Peripheral Pulses: positive 2+ Abdomen: positive Non-tender, No organomegaly, Nml bowel sounds and No distention; negative Tenderness or Guarding Back: positive Nml inspection; negative CVA tenderness (R) or CVA tenderness (L) Skin: positive Color nml, No rash and Warm Extremities: positive Non-tender, Full ROM and No pedal edema Neurologic/Psychiatric: positive Oriented x3 and Mood/affect nml LABS 06/22/24 05:19 06/22/24 05:19 DIAGNOSTIC IMAGING Diagnostic Imaging Results: Final report reviewed QUALITY (Female Hip Fx Only) Was patient sent home on osteoporosis medication?: No FOLLOW UP Follow Up: Follow-up with primary care physician. Follow-up with seed corn production manager. Follow-up with able seaman. TIME SPENT Time Spent in Discharge (Minutes): 40 Discharge Plan Discharge Patient Disposition: Home, Self Care Condition: Stable Prescriptions: New amiodarone 200 mg Tablet 400 mg PO BID 8 Days Qty: 32 0RF Rx Instructions: Please take loading dose (400mg - 2 tabs) twice a day for eight more days. After that, please take 400mg once a day until you see your able seaman. amiodarone 400 mg tablet 400 mg PO DAILY Qty: 30 0RF Rx Instructions: Please take loading dose (400mg - 2 tabs) twice a day for eight more days. After that, please take 400mg once a day until you see your able seaman. amiodarone 400 mg tablet 400 mg PO BID 8 Days Qty: 16 0RF Rx Instructions: Please take 400 mg twice a day for 8 more days. After this, just take 400 mg once a day. amiodarone 400 mg tablet 400 mg PO DAILY Qty: 30 0RF Rx Instructions: Please take 400 mg twice a day for 8 more days (until 06/29). After this, just take 400 mg once a day. Continued spironolacton-hydrochlorothiaz [Aldactazide] 1 EACH tablet 0.5 tab PO DAILY albuterol sulfate [Ventolin HFA] 60 PUFFS/8 GM HFA aerosol inhaler 2 puff inhalation Q4H PRN (Reason: Wheezing) carboxymethylcellulose sodium [Refresh Liquigel] 15 ML drops, liquid gel 1 drp ophthalmic (eye) DAILY PRN (Reason: dry eye(s)) CoQ10 SG 100 1 EACH capsule 1 ea PO DAILY potassium gluconate 99 MG tablet 1,190 mg PO BID cholecalciferol (vitamin D3) [Vitamin D3] 2,000 UNIT capsule 2,000 unit PO DAILY Vitamins B Complex 1 EACH tablet 1 ea PO DAILY methotrexate sodium (PF) 25 MG/ML solution 25 mg IM MO magnesium oxide 400 MG tablet 400 mg PO DAILY Qty: 30 0RF vit C-E-zinc ca-rhsk-aon-zeax 250 mg-200 unit -12.5 mg-1 mg capsule 4 cap PO DAILY fexofenadine [Anni Allergy] 180 mg tablet 180 mg PO Q24H omeprazole 20 mg capsule,delayed release(DR/EC) 20 mg PO DAILY methylprednisolone 4 mg tablet 4 mg PO DAILY clopidogrel 75 mg tablet 75 mg PO DAILY acetaminophen [8 Hour Pain Reliever] 650 mg tablet extended release 1,300 mg PO Q12H Excedrin Extra Strength 250-250-65 mg tablet 1 tab PO DAILY PRN (Reason: pain) Discontinued ginkgo biloba 120 MG tablet 120 mg PO DAILY diltiazem HCl [Cartia XT] 180 mg capsule,extended release 24hr 180 mg PO DAILY Activity Restrictions: Activity as Tolerated Diet: Regular Health Concerns: You came in because he felt like your heart was racing and you were having palpitations. You were found to be in atrial fibrillation with rapid ventricular response, the same thing that brought you in last week. We started you on a different medication called amiodarone through your IV. You converted to normal sinus rhythm. I spoke with your able seaman, and his partner, and he would like you to continue amiodarone 400 mg twice a day for 8 more days. After this, he will continue just amiodarone for her milligrams once a day until you see him or the seed corn production manager. If you had the feeling of palpitations, like your heart is racing again, chest pain, etc, please come back. We are glad you are feeling better; please continue to follow-up with your heart doctor, as well as the heart rhythm doctor. You will also continue to follow up with your primary care physician. Thank you for allowing us to take care of you. Care Plan Goals: 1. Continue amiodarone 400 mg twice a day for 8 more days. 2. Continue amiodarone 400 mg once a day after that until you see your able seaman and your seed corn production manager. 3. Follow-up with your primary care physician. Assessment: 1. Continue amiodarone 400 mg twice a day for 8 more days. 2. Continue amiodarone 400 mg once a day after that until you see your able seaman and your seed corn production manager. 3. Follow-up with your primary care physician. Plan of Treatment: 1. Continue amiodarone 400 mg twice a day for 8 more days. 2. Continue amiodarone 400 mg once a day after that until you see your able seaman and your seed corn production manager. 3. Follow-up with your primary care physician. Print Language: Sami Patient Instructions: Atrial Fibrillation Dc Stand Alone Forms: PCP List"
[2024-06-22 05:39] LABS: HCT - HEMATOCRIT 40.1 % (37.0-47.0); HGB - HEMOGLOBIN 12.8 g/dL (12.0-16.0); MEAN CORPUSCULAR HEMOGLOBIN 31.7 pg (27.0-31.0); MEAN CORPUSCULAR HGB CONC 31.9 g/dL (32.0-36.0); MEAN CORPUSCULAR VOLUME 99.3 fL (81.0-99.0); MEAN PLATELET VOLUME 8.9 fL (7.9-10.8); RED BLOOD COUNT 4.04 10^6/uL (4.20-5.40); RED CELL DISTRIBUTION WIDTH 15.8 % (12.0-15.0); WHITE BLOOD COUNT 10.9 x10^3/uL (4.8-10.8)
[2024-06-22 05:57] LABS: CALCIUM 8.8 mg/dL (8.5-10.3); CREATININE 1.1 mg/dL (0.6-1.3); POTASSIUM 3.9 mmol/L (3.5-4.5)
[2024-06-22] MEDS: HYDROcod/ACETAM 5/325 MG TABLET PO STA (08:05)
[2024-06-22 08:53] VITALS: BP 139/58; TEMP 99; O2SAT 96
== END 2024-06-22 12:30 | disposition home or self-care (01) | DRG 309 ==
LOC: ED 02:13 → MS2 06:32 → ICU 07:09 → MS2 06-21 11:01
PROVIDERS: ADMIT Internal Medicine; ATTEND Internal Medicine
DX: D68.69 Other thrombophilia; I10 Essential (primary) hypertension; G43.109 Migraine with aura, not intractable, without status migrainosus; M35.00 Sjogren syndrome, unspecified; I48.91 Unspecified atrial fibrillation; M62.89 Other specified disorders of muscle; Z79.02 Long term (current) use of antithrombotics/antiplatelets; Z95.818 Presence of other cardiac implants and grafts; I48.0 Paroxysmal atrial fibrillation; Z79.82 Long term (current) use of aspirin